=== PATIENT | female | born 1955 | race Caucasian/White ===

== ENCOUNTER 2019-02-21 08:09 | Inpatient (IN) | payer MEDICARE, OTHER ==
[~2019-02-21 08:09] MED LIST: Acetaminophen 325 MG Tab PO SCH; Acetaminophen/oxyCODONE 325-5 MG Tab PO PRN; Bisacodyl 5 MG Tab PO PRN; Cyclobenzaprine 10 MG Tab PO PRN; Lidocaine 1%/Sod Bicarbonate in NS 8.4% 1 ML Syringe IDERM PRN; Magnesium Hydroxide 400 MG/5 ML Susp 30 ML Cup PO PRN; Morphine 2 MG/ML SYRINGE IVPUSH PRN; Naloxone 0.4 MG/ML SDV IVPUSH PRN; Ondansetron 4 MG/2 ML SDV IVPUSH PRN; Pregabalin 25 MG Cap PO SCH; Sennosides 8.6 MG Tab PO PRN; Sodium Chloride 0.9% 10 ML Syringe FLUSH PRN; oxyCODONE ER 10 MG TAB.ER PO SCH
[2019-02-21] MEDS ORDERED: Bupivacaine 0.25% 10 ML SDV ONE (08:23)
[2019-02-21] MEDS ORDERED: Iodine/Sodium Iodide 2% Tincture 30 ML Bottle ONE (08:23)
[2019-02-21] MEDS ORDERED: ceFAZolin 1 GM Vial ONE ×2 (08:23→08:47)
[2019-02-21] MEDS ORDERED: Vancomycin 1 GM SDV ONE (08:23)
--- NOTE | 2019-02-21 08:38 | PCM.PREANE ---
Preanesthetic Assessment - Anesthesia/Transfusion/Family Hx Anesthesia History: Prior Anesthesia Without Reaction Family History of Anesthesia Reaction: No Transfusion History: No Prior Transfusion(s) - Review of Systems General: No Symptoms Pulmonary: No Symptoms Cardiovascular: No Symptoms Gastrointestinal: No Symptoms Neurological: No Symptoms Other: Reports: None - Physical Assessment NPO Status Date: 02/20/19 NPO Status Time: 19:30 ASA Class: 2 Mental Status: Alert & Oriented x3 Airway Class: Mallampati = 1 Dentition: Reports: Normal Dentition, Implants Thyro-Mental Finger Breadths: 3 Mouth Opening Finger Breadths: 3 ROM/Head Extension: Full Lungs: Clear to Auscultation, Normal Respiratory Effort Cardiovascular: Regular Rate, Regular Rhythm - Lab Values: Laboratory Last Values MRSA (PCR) Negative 02/02/19 15:59 - Allergies Allergies/Adverse Reactions: Allergies Allergy/AdvReac Type Severity Reaction Status Date / Time Penicillins Allergy Hives Verified 10/22/18 12:04 - Acknowledgements Anesthesia Type Planned: Spinal Pt an Appropriate Candidate for the Planned Anesthesia: Yes Alternatives and Risks of Anesthesia Discussed w Pt/Guardian: Yes Pt/Guardian Understands and Agrees with Anesthesia Plan: Yes PreAnesthesia Questionnaire HEENT History: Reports: Cataract Cardiovascular History: Reports: High Cholesterol Respiratory History: Reports: None Gastrointestinal History: Reports: None Genitourinary History: Reports: None Musculoskeletal History: Reports: Other (See Below) (osteopenia) Neurological History: Reports: None Psychiatric History: Reports: None Endocrine/Metabolic History: Reports: None Hematologic History: Reports: None Immunologic History: Reports: None Oncologic (Cancer) History: Reports: None - Past Surgical History HEENT Surgical History: Reports: Cataract Surgery, Oral Surgery GI Surgical History: Reports: Colonoscopy - SUBSTANCE USE Smoking Status *Q: Never Smoker - CURRENT (IN HOUSE) MEDS Current Meds: Current Medications Acetaminophen (Tylenol) 975 mg PO ONETIME TORO Stop: 02/21/19 12:00 Aspirin (Ecotrin) 325 mg PO BID TORO Bisacodyl (Dulcolax) 5 mg PO DAILY PRN PRN Reason: Constipation Morphine Sulfate 8 mg/Epinephrine HCl 0.3 mg/Cefuroxime Sodium 750 mg/Ketorolac Tromethamine 30 mg/Sodium Chloride 27.9 ml 0 mg .XX ONETIME ONE Stop: 02/21/19 06:48 Cyclobenzaprine HCl (Flexeril) 10 mg PO TID PRN PRN Reason: Spasms Docusate Sodium (Colace) 100 mg PO BID [facility] Famotidine (Pepcid) 20 mg PO Q12H [facility] Lactated Ringer's (Ringers, Lactated) 1,000 mls @ 125 mls/hr IV ASDIRECTED [facility] Stop: 02/21/19 23:00 Cefazolin Sodium/Dextrose 2 gm (/ Premix) 50 mls @ 100 mls/hr IV Q8H [facility] Stop: 02/21/19 23:29 Ketorolac Tromethamine (Toradol) 15 mg IVPUSH Q6H PRN PRN Reason: Pain Lidocaine/Sodium Bicarbonate (Buffered Lidocaine 1% In Ns 8.4%) 0.25 ml IDERM ONETIME PRN PRN Reason: Prior to IV Start Stop: 02/21/19 18:00 Magnesium Hydroxide (Milk Of Magnesia) 30 ml PO BID PRN PRN Reason: Constipation Morphine Sulfate (Morphine) 2 mg IVPUSH Q2H PRN PRN Reason: Breakthrough Pain Naloxone HCl (Narcan) 0.1 mg IVPUSH Q5M PRN PRN Reason: Oversedation Ondansetron HCl (Zofran) 4 mg IVPUSH Q6H PRN PRN Reason: Nausea/Vomiting Oxycodone HCl (Oxycontin) 10 mg PO ONETIME [facility] Stop: 02/21/19 12:00 Oxycodone/Acetaminophen (Percocet 325-5 Mg) 1 - 2 tab PO Q4H PRN PRN Reason: Pain Pregabalin (Lyrica) 50 mg PO ONETIME [facility] Stop: 02/21/19 12:00 Senna (Senna) 8.6 mg PO BID PRN PRN Reason: Constipation Sodium Chloride (Saline Flush) 10 ml FLUSH ASDIRECTED PRN PRN Reason: Keep Vein Open Stop: 02/21/19 18:00 Discontinued Medications Bupivacaine HCl (Sensorcaine-Mpf 0.25%) Confirm Administered Dose 30 ml .ROUTE .STK-MED ONE Stop: 02/21/19 08:24 Cefazolin Sodium (Ancef) Confirm Administered Dose 2 gm .ROUTE .STK-MED ONE Stop: 02/21/19 08:24 Iodine (Iodine 2% Mild Tincture) Confirm Administered Dose 30 ml .ROUTE .STK- MED ONE Stop: 02/21/19 08:24 Tranexamic Acid (Cyklokapron) Confirm Administered Dose 1,000 mg .ROUTE .STK- MED ONE Stop: 02/21/19 08:24 Vancomycin HCl (Vancomycin) Confirm Administered Dose 1 gm .ROUTE .STK-MED ONE Stop: 02/21/19 08:24
[2019-02-21] MEDS: Lactated Ringers 1,000 ML IV SCH ×2 (08:40→11:54)
[2019-02-21] MEDS ORDERED: Lidocaine 1% 4 ML ONE (09:00)
[2019-02-21] MEDS ORDERED: Propofol 200 MG/20 ML SDV ONE (09:00)
[2019-02-21] MEDS ORDERED: Midazolam 1 MG/ML 2 ML SDV ONE (09:02)
[2019-02-21] MEDS ORDERED: fentaNYL 100 MCG/2 ML SDV ONE (09:02)
[2019-02-21] MEDS ORDERED: Lactated Ringers 1,000 ML ONE (09:49)
[2019-02-21] MEDS ORDERED: Morphine 8 MG, EPINEPHrine 0.3 MG, Cefuroxime 750 MG, Ketorolac 30 MG, Sodium Chloride ... ONE ×5 (10:00)
[2019-02-21] MEDS ORDERED: ePHEDrine 50 MG/ML SDV IVPUSH PRN (10:05)
[2019-02-21] MEDS ORDERED: Ondansetron 4 MG/2 ML SDV IVPUSH PRN ×2 (10:05→16:00)
[2019-02-21] MEDS ORDERED: ePHEDrine/Normal Saline 25 MG/5 ML Syringe ONE (10:14)
[2019-02-21] MEDS ORDERED: Ketorolac 30 MG/ML SDV ONE (10:30)
[2019-02-21] MEDS ORDERED: Ondansetron 4 MG/2 ML SDV ONE (10:30)
--- NOTE | 2019-02-21 11:21 | PCM.POSTAN ---
POST ANESTHESIA ASSESSMENT - MENTAL STATUS Mental Status: Alert, Oriented - VITAL SIGNS Vital Signs: Last Vital Signs Temp 36.4 C 02/21/19 08:25 Pulse 64 02/21/19 08:25 Resp 16 02/21/19 08:25 BP 129/77 02/21/19 08:25 Pulse Ox 98 02/21/19 08:25 - RESPIRATORY Respiratory Status: Respiratory Rate WNL, Airway Patent, O2 Saturation Stable - CARDIOVASCULAR CV Status: Pulse Rate WNL, Blood Pressure Stable - GASTROINTESTINAL GI Status: No Symptoms - PAIN Pain Score: 0 - POST OP HYDRATION Hydration Status: Adequate & Stable
--- NOTE | 2019-02-21 11:50 | PCM48HPAN ---
Post Anesthesia Note - EVALUATION WITHIN 48HRS OF ANESTHETIC Vital Signs in Normal Range: Yes Patient Participated in Evaluation: Yes Respiratory Function Stable: Yes Airway Patent: Yes Cardiovascular Function Stable: Yes Hydration Status Stable: Yes Pain Control Satisfactory: Yes Nausea and Vomiting Control Satisfactory: Yes Mental Status Recovered: Yes Vital Signs: Last Vital Signs Temp 36.3 C 02/21/19 11:45 Pulse 60 02/21/19 11:45 Resp 11 L 02/21/19 11:45 BP 98/51 L 02/21/19 11:45 Pulse Ox 96 02/21/19 11:45
--- NOTE | 2019-02-21 12:01 | CR ---
Pelvis and right hip: AP view of the pelvis was obtained as well as AP and crosstable lateral views of the right hip. Diffuse joint space narrowing is seen within the left hip. Recently placed right hip prosthesis is seen. Soft tissue air is noted from the surgical procedure around the right hip. Underlying bony structures are intact. Impression: 1. Diffuse joint space narrowing within the left hip. 2. Satisfactory appearance of recently placed right hip prosthesis. Diagnostic code #2 This report was dictated in [place] Standard Time
[2019-02-21] MEDS ORDERED: Cyclobenzaprine 10 MG Tab PO PRN (16:00)
[2019-02-21] MEDS ORDERED: Naloxone 0.4 MG/ML SDV IVPUSH PRN (16:00)
[2019-02-21] MEDS ORDERED: Morphine 2 MG/ML SYRINGE IVPUSH PRN (16:00)
[2019-02-21] MEDS ORDERED: Magnesium Hydroxide 400 MG/5 ML Susp 30 ML Cup PO PRN (16:00)
[2019-02-21] MEDS ORDERED: Sennosides 8.6 MG Tab PO PRN (16:00)
[2019-02-21] MEDS ORDERED: Bisacodyl 5 MG Tab PO PRN (16:00)
[2019-02-21] MEDS ORDERED: Ketorolac 15 MG/ML SDV IVPUSH PRN ×2 (16:00)
[2019-02-21] MEDS: Acetaminophen/oxyCODONE 325-5 MG Tab PO PRN (16:18)
[2019-02-21] MEDS: ceFAZolin 2 GM in Premix Bag 1 BAG IV SCH (17:46)
[2019-02-21] MEDS: Docusate Sodium 100 MG Cap PO SCH (20:25)
[2019-02-21] MEDS ORDERED: Famotidine 20 MG Tab PO SCH ×2 (21:00)
[2019-02-21] MEDS ORDERED: Docusate Sodium 100 MG Cap PO SCH (21:00)
[2019-02-22] MEDS: Acetaminophen/oxyCODONE 325-5 MG Tab PO PRN ×2 (00:17→08:40)
[2019-02-22] MEDS: ceFAZolin 2 GM in Premix Bag 1 BAG IV SCH ×2 (00:18→08:42)
--- NOTE | 2019-02-22 07:37 | PCM.SURGPN ---
- General Info Date of Service: 02/22/19 POD#: 1 Functional Status: Reports: Pain Controlled, Tolerating Diet, Ambulating, Urinating, Incentive Spirometry, Other (The pt states she slept well after using Flexeril at HS.) - Patient Data Vitals - Most Recent: Last Vital Signs Temp 98.1 F 02/22/19 04:39 Pulse 74 02/22/19 04:39 Resp 16 02/22/19 04:39 BP 121/86 02/22/19 04:39 Pulse Ox 95 02/22/19 04:39 Weight - Most Recent: 173 lb 6.4 oz I&O - Last 24 Hours: Intake & Output 02/21/19 02/22/19 02/22/19 22:59 06:59 14:59 Intake Total 180 650 Output Total 1500 Balance 180 -850 Lab Results Last 24 Hrs: Laboratory Results - last 24 hr 02/21/19 02/21/19 02/22/19 Range/Units 08:43 08:43 05:50 WBC 8.60 (3.98-10.04) K/mm3 RBC 3.77 L (3.98-5.22) M/mm3 Hgb 11.5 (11.2-15.7) gm/dl Hct 34.7 (34.1-44.9) % MCV 92.0 (79.4-94.8) fl MCH 30.5 (25.6-32.2) pg MCHC 33.1 (32.2-35.5) g/dl RDW Std Deviation 38.5 (36.4-46.3) fL Plt Count 149 L (182-369) K/mm3 MPV 11.2 (9.4-12.3) fl PT 11.6 (9.7-12.0) SECONDS INR 1.07 APTT 27 (22-31) SECONDS Sodium (136-145) mEq/L Potassium (3.5-5.1) mEq/L Chloride (98-107) mEq/L Carbon Dioxide (21-32) mEq/L Anion Gap (5-15) BUN (7-18) mg/dL Creatinine (0.55-1.02) mg/dL Est Cr Clr Drug Dosing mL/min Estimated GFR (MDRD) (>60) mL/min BUN/Creatinine Ratio (14-18) Glucose (80-115) mg/dL Calcium (8.5-10.1) mg/dL Total Bilirubin (0.2-1.0) mg/dL AST (15-37) U/L ALT (14-59) U/L Alkaline Phosphatase (46-116) U/L Total Protein (6.4-8.2) g/dl Albumin (3.4-5.0) g/dl Globulin gm/dL Albumin/Globulin Ratio (1-2) Blood Type O POSITIVE Gel Antibody Screen Negative 02/22/19 Range/Units 05:50 WBC (3.98-10.04) K/mm3 RBC (3.98-5.22) M/mm3 Hgb (11.2-15.7) gm/dl Hct (34.1-44.9) % MCV (79.4-94.8) fl MCH (25.6-32.2) pg MCHC (32.2-35.5) g/dl RDW Std Deviation (36.4-46.3) fL Plt Count (182-369) K/mm3 MPV (9.4-12.3) fl PT (9.7-12.0) SECONDS INR APTT (22-31) SECONDS Sodium 135 L (136-145) mEq/L Potassium 4.0 (3.5-5.1) mEq/L Chloride 102 (98-107) mEq/L Carbon Dioxide 25 (21-32) mEq/L Anion Gap 12.0 (5-15) BUN 15 (7-18) mg/dL Creatinine 0.8 (0.55-1.02) mg/dL Est Cr Clr Drug Dosing 60.54 mL/min Estimated GFR (MDRD) > 60 (>60) mL/min BUN/Creatinine Ratio 18.8 H (14-18) Glucose 136 H (80-115) mg/dL Calcium 8.5 (8.5-10.1) mg/dL Total Bilirubin 0.4 (0.2-1.0) mg/dL AST 32 (15-37) U/L ALT 33 (14-59) U/L Alkaline Phosphatase 81 (46-116) U/L Total Protein 6.0 L (6.4-8.2) g/dl Albumin 3.1 L (3.4-5.0) g/dl Globulin 2.9 gm/dL Albumin/Globulin Ratio 1.1 (1-2) Blood Type Gel Antibody Screen Med Orders - Current: Current Medications Aspirin (Ecotrin) 325 mg PO BID ON LICENSE OF [facility] Bisacodyl (Dulcolax) 5 mg PO DAILY PRN PRN Reason: Constipation Cholecalciferol (Vitamin D3) 50 mcg PO DAILY ON [facility] OF [facility] Cyclobenzaprine HCl (Flexeril) 10 mg PO TID PRN PRN Reason: Spasms Last Admin: 02/22/19 02:31 Dose: 10 mg Docusate Sodium (Colace) 100 mg PO BID ON [facility] Last Admin: 02/21/19 20:25 Dose: 100 mg Famotidine (Pepcid) 20 mg PO Q12H ON [facility] Last Admin: 02/21/19 20:26 Dose: 20 mg Cefazolin Sodium/Dextrose 2 gm (/ Premix) 50 mls @ 100 mls/hr IV Q8H ON [facility] Stop: 02/22/19 09:29 Last Admin: 02/22/19 00:18 Dose: 100 mls/hr Ketorolac Tromethamine (Toradol) 15 mg IVPUSH Q6H PRN PRN Reason: Pain Last Admin: 02/21/19 20:30 Dose: 15 mg Magnesium Hydroxide (Milk Of Magnesia) 30 ml PO BID PRN PRN Reason: Constipation Morphine Sulfate (Morphine) 2 mg IVPUSH Q2H PRN PRN Reason: Breakthrough Pain Multivitamins (Thera) 1 each PO DAILY ON [facility] Naloxone HCl (Narcan) 0.1 mg IVPUSH Q5M PRN PRN Reason: Oversedation Ondansetron HCl (Zofran) 4 mg IVPUSH Q6H PRN PRN Reason: Nausea/Vomiting Oxycodone/Acetaminophen (Percocet 325-5 Mg) 1 - 2 tab PO Q4H PRN PRN Reason: Pain Last Admin: 02/22/19 00:17 Dose: 2 tab Rosuvastatin Calcium (Crestor) 5 mg PO DAILY ON [facility] Saccharomyces Boulardii (Florastor) 250 mg PO DAILY ON [facility] Senna (Senna) 8.6 mg PO BID PRN PRN Reason: Constipation Discontinued Medications Acetaminophen (Tylenol) 975 mg PO ONETIME ON [facility] Stop: 02/21/19 12:00 Last Admin: 02/21/19 08:46 Dose: 975 mg Aspirin (Ecotrin) 325 mg PO BID [facility] Bisacodyl (Dulcolax) 5 mg PO DAILY PRN PRN Reason: Constipation Bupivacaine HCl (Sensorcaine-Mpf 0.25%) Confirm Administered Dose 30 ml .ROUTE .STK-MED ONE Stop: 02/21/19 08:24 Last Admin: 02/21/19 10:46 Dose: 30 ml Cefazolin Sodium (Ancef) Confirm Administered Dose 2 gm .ROUTE .STK-MED ONE Stop: 02/21/19 08:24 Last Admin: 02/21/19 10:40 Dose: 2 gm Cefazolin Sodium (Ancef) Confirm Administered Dose 2 gm .ROUTE .STK-MED ONE Stop: 02/21/19 08:48 Morphine Sulfate 8 mg/Epinephrine HCl 0.3 mg/Cefuroxime Sodium 750 mg/Ketorolac Tromethamine 30 mg/Sodium Chloride 27.9 ml 0 mg .XX ONETIME ONE Stop: 02/21/19 10:01 Last Admin: 02/21/19 10:45 Dose: 788.3 mg Cyclobenzaprine HCl (Flexeril) 10 mg PO TID PRN PRN Reason: Spasms Docusate Sodium (Colace) 100 mg PO BID ON [facility] Ephedrine Sulfate (Ephedrine Sulfate) 5 mg IVPUSH ASDIRECTED PRN PRN Reason: Hypotension Stop: 02/21/19 14:00 Ephedrine Sulfate (Ephedrine In Ns) Confirm Administered Dose 25 mg .ROUTE .STK- MED ONE Stop: 02/21/19 10:15 Famotidine (Pepcid) 20 mg PO Q12H ON [facility] Fentanyl (Sublimaze) Confirm Administered Dose 100 mcg .ROUTE .STK-MED ONE Stop: 02/21/19 09:03 Lactated Ringer's (Ringers, Lactated) 1,000 mls @ 125 mls/hr IV ASDIRECTED [facility] Stop: 02/21/19 23:00 Last Admin: 02/21/19 11:54 Dose: 125 mls/hr Lidocaine HCl (Xylocaine-Mpf 1%) Confirm Administered Dose 4 mls @ as directed .ROUTE .STK-MED ONE Stop: 02/21/19 09:01 Lactated Ringer's (Ringers, Lactated) Confirm Administered Dose 1,000 mls @ as directed .ROUTE .STK-MED ONE Stop: 02/21/19 09:50 Iodine (Iodine 2% Mild Tincture) Confirm Administered Dose 30 ml .ROUTE .STK- MED ONE Stop: 02/21/19 08:24 Last Admin: 02/21/19 10:39 Dose: 18 ml Ketorolac Tromethamine (Toradol) 15 mg IVPUSH Q6H PRN PRN Reason: Pain Ketorolac Tromethamine (Toradol) Confirm Administered Dose 30 mg .ROUTE .STK- MED ONE Stop: 02/21/19 10:31 Lidocaine/Sodium Bicarbonate (Buffered Lidocaine 1% In Ns 8.4%) 0.25 ml IDERM ONETIME PRN PRN Reason: Prior to IV Start Stop: 02/21/19 18:00 Last Admin: 02/21/19 08:39 Dose: 0.25 ml Magnesium Hydroxide (Milk Of Magnesia) 30 ml PO BID PRN PRN Reason: Constipation Midazolam HCl (Versed 1 Mg/Ml) Confirm Administered Dose 2 mg .ROUTE .STK-MED ONE Stop: 02/21/19 09:03 Morphine Sulfate (Morphine) 2 mg IVPUSH Q2H PRN PRN Reason: Breakthrough Pain Naloxone HCl (Narcan) 0.1 mg IVPUSH Q5M PRN PRN Reason: Oversedation Ondansetron HCl (Zofran) 4 mg IVPUSH Q6H PRN PRN Reason: Nausea/Vomiting Ondansetron HCl (Zofran) 4 mg IVPUSH ONETIME PRN PRN Reason: Nausea/Vomiting Stop: 02/21/19 14:00 Ondansetron HCl (Zofran) Confirm Administered Dose 4 mg .ROUTE .STK-MED ONE Stop: 02/21/19 10:31 Oxycodone HCl (Oxycontin) 10 mg PO ONETIME [facility] Stop: 02/21/19 12:00 Last Admin: 02/21/19 08:46 Dose: 10 mg Oxycodone/Acetaminophen (Percocet 325-5 Mg) 1 - 2 tab PO Q4H PRN PRN Reason: Pain Pregabalin (Lyrica) 50 mg PO ONETIME [facility] Stop: 02/21/19 12:00 Last Admin: 02/21/19 08:46 Dose: 50 mg Propofol (Diprivan 20 Ml) Confirm Administered Dose 200 mg .ROUTE .STK-MED ONE Stop: 02/21/19 09:01 Senna (Senna) 8.6 mg PO BID PRN PRN Reason: Constipation Sodium Chloride (Saline Flush) 10 ml FLUSH ASDIRECTED PRN PRN Reason: Keep Vein Open Stop: 02/21/19 18:00 Tranexamic Acid (Cyklokapron) Confirm Administered Dose 1,000 mg .ROUTE .STK- MED ONE Stop: 02/21/19 08:24 Last Admin: 02/21/19 10:47 Dose: 1,000 mg Vancomycin HCl (Vancomycin) Confirm Administered Dose 1 gm .ROUTE .STK-MED ONE Stop: 02/21/19 08:24 Last Admin: 02/21/19 10:47 Dose: 1 gm - Exam Wound/Incisions: Dressing Dry and Intact General: Alert, Cooperative, No Acute Distress Lungs: Normal Respiratory Effort Extremities: Other (NVS intact for BLE. Kennedy's negative. Right thigh soft.) Sepsis Event Note - Evaluation Sepsis Screening Result: No Definite Risk - Focused Exam Vital Signs: Vital Signs Temp Pulse Resp BP Pulse Ox 02/22/19 04:39 98.1 F 74 16 121/86 95 02/22/19 00:05 98.1 F 63 18 128/85 99 02/21/19 20:24 98.8 F 70 18 116/70 98 Date Exam was Performed: 02/22/19 Time Exam was Performed: 07:35 - Problem List Review Problem List Initiated/Reviewed/Updated: Yes - My Orders Last 24 Hours: Active Orders 24 hr Category Date Time Status Patient Status [ADT] Routine ADT 02/21/19 06:49 Active Ambulate [RC] DAILY Care 02/21/19 06:48 Active Antiembolic Devices [RC] BID Care 02/21/19 06:49 Active Communication Order [RC] DAILY Care 02/21/19 10:05 Active May Shower [RC] DAILY Care 02/21/19 06:48 Active Notify Provider [RC] DAILY Care 02/21/19 10:05 Active Oxygen Therapy [RC] PRN Care 02/21/19 06:49 Active RT Incentive Spirometry [RC] Q1HWA Care 02/21/19 06:47 Active Ready for Discharge [RC] PER UNIT ROUTINE Care 02/22/19 07:35 Ordered Up to Chair [RC] DAILY Care 02/21/19 06:48 Active Vital Signs [RC] 00,04,08,12,16,20 Care 02/21/19 06:49 Active OT Evaluation and Treatment [CONS] Routine Cons 02/21/19 06:47 Active PT Evaluation and Treatment [CONS] Routine Cons 02/21/19 06:47 Active Regular Diet [DIET] Diet 02/21/19 Lunch Active Acetaminophen/oxyCODONE [Percocet 325-5 MG] Med 02/21/19 16:00 Active 1 - 2 tab PO Q4H PRN Aspirin [Ecotrin] Med 02/22/19 09:00 Active 325 mg PO BID Cholecalciferol (Vitamin D3) [Vitamin D3] Med 02/22/19 09:00 Active 50 mcg PO DAILY Cyclobenzaprine [Flexeril] Med 02/21/19 16:00 Active 10 mg PO TID PRN Docusate Sodium [Colace] Med 02/21/19 21:00 Active 100 mg PO BID Famotidine [Pepcid] Med 02/21/19 21:00 Active 20 mg PO Q12H Ketorolac [Toradol] Med 02/21/19 16:00 Active 15 mg IVPUSH Q6H PRN Magnesium Hydroxide [Milk of Magnesia] Med 02/21/19 16:00 Active 30 ml PO BID PRN Morphine Med 02/21/19 16:00 Active 2 mg IVPUSH Q2H PRN Multivitamins,Therapeutic [Thera] Med 02/22/19 09:00 Active 1 each PO DAILY Naloxone [Narcan] Med 02/21/19 16:00 Active 0.1 mg IVPUSH Q5M PRN Ondansetron [Zofran] Med 02/21/19 16:00 Active 4 mg IVPUSH Q6H PRN Rosuvastatin [Crestor] Med 02/22/19 09:00 Active 5 mg PO DAILY Saccharomyces Boulardii [Florastor] Med 02/22/19 09:00 Active 250 mg PO DAILY Sennosides [Senna] Med 02/21/19 16:00 Active 8.6 mg PO BID PRN bisacodyL [Dulcolax] Med 02/21/19 16:00 Active 5 mg PO DAILY PRN ceFAZolin [Ancef] 2 gm Med 02/21/19 17:00 Active Premix Bag 1 bag IV Q8H Antiembolic Hose [OM.PC] Per Unit Routine Oth 02/21/19 06:50 Ordered Hip Precautions Posterior [OM.PC] Routine Oth 02/21/19 06:47 Ordered Ice Therapy [OM.PC] Per Unit Routine Oth 02/21/19 06:49 Ordered Sequential Compression Device [OM.PC] Per Unit Routine Oth 02/21/19 06:47 Ordered Resuscitation Status Routine Resus Stat 02/21/19 06:48 Ordered Medication Orders Aspirin (Ecotrin) 325 mg PO BID ON [facility] OF [facility] Bisacodyl (Dulcolax) 5 mg PO DAILY PRN PRN Reason: Constipation Cholecalciferol (Vitamin D3) 50 mcg PO DAILY ON [facility] Cyclobenzaprine HCl (Flexeril) 10 mg PO TID PRN PRN Reason: Spasms Last Admin: 02/22/19 02:31 Dose: 10 mg Docusate Sodium (Colace) 100 mg PO BID ON [facility] Last Admin: 02/21/19 20:25 Dose: 100 mg Famotidine (Pepcid) 20 mg PO Q12H ON [facility] Last Admin: 02/21/19 20:26 Dose: 20 mg Cefazolin Sodium/Dextrose 2 gm (/ Premix) 50 mls @ 100 mls/hr IV Q8H ON [facility] Stop: 02/22/19 09:29 Last Admin: 02/22/19 00:18 Dose: 100 mls/hr Infusion: 02/21/19 18:16 Dose: 100 mls/hr Admin: 02/21/19 17:46 Dose: 100 mls/hr Ketorolac Tromethamine (Toradol) 15 mg IVPUSH Q6H PRN PRN Reason: Pain Last Admin: 02/21/19 20:30 Dose: 15 mg Magnesium Hydroxide (Milk Of Magnesia) 30 ml PO BID PRN PRN Reason: Constipation Morphine Sulfate (Morphine) 2 mg IVPUSH Q2H PRN PRN Reason: Breakthrough Pain Multivitamins (Thera) 1 each PO DAILY ON [facility] Naloxone HCl (Narcan) 0.1 mg IVPUSH Q5M PRN PRN Reason: Oversedation Ondansetron HCl (Zofran) 4 mg IVPUSH Q6H PRN PRN Reason: Nausea/Vomiting Oxycodone/Acetaminophen (Percocet 325-5 Mg) 1 - 2 tab PO Q4H PRN PRN Reason: Pain Last Admin: 02/22/19 00:17 Dose: 2 tab Admin: 02/21/19 16:18 Dose: 1 tab Rosuvastatin Calcium (Crestor) 5 mg PO DAILY [facility] Saccharomyces Boulardii (Florastor) 250 mg PO DAILY [facility] Senna (Senna) 8.6 mg PO BID PRN PRN Reason: Constipation - Assessment Assessment (Free Text/Narrative):: POD#1 - right JOSE DANIEL - Plan Plan (Free Text/Narrative):: 1. Hgb 11.5. 2. Discharge to home today. 3. Outpatient therapy. 4. 325mg ASA PO BID, frequent mobility, TEDs. The pt's case was discussed with Dr. Infante.
--- NOTE | 2019-02-22 08:15 | PCM.DCSUM1 ---
Discharge Summary - Hospital Course Brief History: Apple is a 63 yo female who underwent right JOSE DANIEL with Dr. Infante on 02-21-2019. The procedure was completed under spinal anesthesia with MAC. The pt tolerated the procedure well and was admitted to the Medical-Surgical Unit. The pt's Hospital course was uneventful. The pt's Hgb on POD#1 was 11.5. On POD#1, 325mg ASA BID was initiated for VTE prophylaxis. SCDs and TEDs were also ordered. A Mepilex dressing was placed at the incision site at the time of surgery and remained clean and dry. The pt participated in P.T. and O.T. and progressed well. She followed the JOSE DANIEL precautions. The pt was allowed to WBAT and used a FWW for mobility. On POD#1, the pt was deemed appropriate to discharge to home with her . - Discharge Data Discharge Date: 02/22/19 Discharge Disposition: Home, Self-Care 01 Condition: Good - Referral to Home Health Primary Care Physician: PCP Not In Area - Patient Summary/Data Consults: Consultations 02/21/19 06:47 OT Evaluation and Treatment [CONS] Routine PT Evaluation and Treatment [CONS] Routine - Patient Instructions Diet: Usual Diet as Tolerated Activity: Apply Ice, As Tolerated, Elevate Extremity, Full Weight Bearing Activity, Other: Follow the total hip precautions. Driving: Do Not Drive Showering/Bathing: May Shower Wound/Incision Care: Keep Operative Site/Wound Site Clean and Dry, Do NOT Change Dressing Notify Provider of: Fever, Increased Pain, Swelling and Redness, Drainage, Nausea and/or Vomiting Other/Special Instructions: Please get up and moving around EVERY HOUR while awake. This helps to prevent blood clots. Please use your walker and have help with mobility as needed. Take a short walk in your home every hour while awake. Please take 325mg Aspirin TWICE daily. The aspirin is being used for blood clot prevention and not for pain management so please do not miss a dose of the medication. You could use a medication like Pepcid or Tagamet and a medication like Prilosec or Nexium to protect your stomach while you are using the aspirin. At home, please complete the exercises that you learned during the Hospital stay. Schedule for physical therapy. Follow the total hip precautions. Use the pain medication as needed. The medication may cause drowsiness and constipation. Contact your primary care provider for instructions if you are constipated. You may use a stool softener like docusate sodium or Colace 100mg twice daily and/or a laxative like Miralax daily for constipation. Increase your water and fiber intake while you are using the pain medication. Discontinue use of the pain medication as soon as able. Please do not use other medications that may cause drowsiness (other pain medications, anxiety pills, cold medications, sleeping pills, etc) while using the prescription pain medication. Do not use alcohol while using the pain medication. You may use acetaminophen or Tylenol for pain management, however, please ensure you are not using over 4000 mg or 4 grams of acetaminophen per day from all sources. Your pain medication has 325mg of acetaminophen per tablet. At this time, please do not use ibuprofen (Motrin, Advil) or naproxen (Aleve) for pain management as you are using the aspirin. When the aspirin course is completed in 4 to 6 weeks, you could use ibuprofen or naproxen for pain management (if this is allowed by your primary care provider). Wear the ARTEMIO hose during the day and you may remove these at night. Elevate the limb to decrease swelling. Place ice to the area often. Place a towel between your skin and the blue pad. Use the incentive spirometer often. Take deep breaths throughout the day. Please keep the dressing in place until follow-up. Notify the Clinic if the dressing becomes saturated. Increase your protein intake while you are healing. You may resume use of herbal medication in 2 weeks. Call the Clinic with questions or concerns - [phone]. - Discharge Plan *PRESCRIPTION DRUG MONITORING PROGRAM REVIEWED*: No *COPY OF PRESCRIPTION DRUG MONITORING REPORT IN PATIENT JENNIFER: No Prescriptions/Med Rec: Acetaminophen/oxyCODONE [Percocet 325-5 MG] 1 - 2 tab PO Q4H PRN #60 tablet PRN Reason: Pain Aspirin [Ecotrin EC] 325 mg PO BID #70 tab.ec Cyclobenzaprine [Flexeril] 10 mg PO BID PRN #30 tablet PRN Reason: Spasms Home Medications: Home Meds Cholecalciferol (Vitamin D3) [Vitamin D3] 1 cap PO DAILY 02/21/19 [History] L.acidoph,Paracasei, B.lactis [Probiotic] 1 cap PO DAILY 02/21/19 [History] Multivitamin [Multivitamins] 1 cap PO DAILY 02/21/19 [History] Rosuvastatin [Crestor] 5 mg PO DAILY 02/21/19 [History] estradioL [Estrace 0.01% Vaginal Crm] 1 gram VAG ASDIRECTED 02/21/19 [History] Acetaminophen/oxyCODONE [Percocet 325-5 MG] 1 - 2 tab PO Q4H PRN #60 tablet 09/04 [Rx] Aspirin [Ecotrin EC] 325 mg PO BID #70 tab.ec 02/22/19 [Rx] Cyclobenzaprine [Flexeril] 10 mg PO BID PRN #30 tablet 02/22/19 [Rx] Docusate Sodium [Colace] 100 mg PO BID cap 02/22/19 [Rx] Famotidine [Pepcid] 20 mg PO Q12H tablet 02/22/19 [Rx] Magnesium Hydroxide [Milk of Magnesia] 30 ml PO BID PRN cup 02/22/19 [Rx] Sennosides [Senna] 8.6 mg PO BID PRN tablet 02/22/19 [Rx] bisacodyL [Dulcolax] 5 mg PO DAILY PRN tablet 02/22/19 [Rx] Patient Handouts: Total Hip Replacement, [id number] Referrals: Milady Leal PA-C [Physician Us Administrative Law Judge] - - Discharge Summary/Plan Comment DC Time >30 min.: No - Patient Data Vitals - Most Recent: Last Vital Signs Temp 98.1 F 02/22/19 04:39 Pulse 74 02/22/19 04:39 Resp 16 02/22/19 04:39 BP 121/86 02/22/19 04:39 Pulse Ox 95 02/22/19 04:39 Weight - Most Recent: 173 lb 6.4 oz I&O - Last 24 hours: Intake & Output 02/21/19 02/22/19 02/22/19 22:59 06:59 14:59 Intake Total 180 650 Output Total 1500 Balance 180 -850 Lab Results - Last 24 hrs: Laboratory Results - last 24 hr 02/21/19 02/21/19 02/22/19 Range/Units 08:43 08:43 05:50 WBC 8.60 (3.98-10.04) K/mm3 RBC 3.77 L (3.98-5.22) M/mm3 Hgb 11.5 (11.2-15.7) gm/dl Hct 34.7 (34.1-44.9) % MCV 92.0 (79.4-94.8) fl MCH 30.5 (25.6-32.2) pg MCHC 33.1 (32.2-35.5) g/dl RDW Std Deviation 38.5 (36.4-46.3) fL Plt Count 149 L (182-369) K/mm3 MPV 11.2 (9.4-12.3) fl PT 11.6 (9.7-12.0) SECONDS INR 1.07 APTT 27 (22-31) SECONDS Sodium (136-145) mEq/L Potassium (3.5-5.1) mEq/L Chloride (98-107) mEq/L Carbon Dioxide (21-32) mEq/L Anion Gap (5-15) BUN (7-18) mg/dL Creatinine (0.55-1.02) mg/dL Est Cr Clr Drug Dosing mL/min Estimated GFR (MDRD) (>60) mL/min BUN/Creatinine Ratio (14-18) Glucose (80-115) mg/dL Calcium (8.5-10.1) mg/dL Total Bilirubin (0.2-1.0) mg/dL AST (15-37) U/L ALT (14-59) U/L Alkaline Phosphatase (46-116) U/L Total Protein (6.4-8.2) g/dl Albumin (3.4-5.0) g/dl Globulin gm/dL Albumin/Globulin Ratio (1-2) Blood Type O POSITIVE Gel Antibody Screen Negative 02/22/19 Range/Units 05:50 WBC (3.98-10.04) K/mm3 RBC (3.98-5.22) M/mm3 Hgb (11.2-15.7) gm/dl Hct (34.1-44.9) % MCV (79.4-94.8) fl MCH (25.6-32.2) pg MCHC (32.2-35.5) g/dl RDW Std Deviation (36.4-46.3) fL Plt Count (182-369) K/mm3 MPV (9.4-12.3) fl PT (9.7-12.0) SECONDS INR APTT (22-31) SECONDS Sodium 135 L (136-145) mEq/L Potassium 4.0 (3.5-5.1) mEq/L Chloride 102 (98-107) mEq/L Carbon Dioxide 25 (21-32) mEq/L Anion Gap 12.0 (5-15) BUN 15 (7-18) mg/dL Creatinine 0.8 (0.55-1.02) mg/dL Est Cr Clr Drug Dosing 60.54 mL/min Estimated GFR (MDRD) > 60 (>60) mL/min BUN/Creatinine Ratio 18.8 H (14-18) Glucose 136 H (80-115) mg/dL Calcium 8.5 (8.5-10.1) mg/dL Total Bilirubin 0.4 (0.2-1.0) mg/dL AST 32 (15-37) U/L ALT 33 (14-59) U/L Alkaline Phosphatase 81 (46-116) U/L Total Protein 6.0 L (6.4-8.2) g/dl Albumin 3.1 L (3.4-5.0) g/dl Globulin 2.9 gm/dL Albumin/Globulin Ratio 1.1 (1-2) Blood Type Gel Antibody Screen Med Orders - Current: Current Medications Aspirin (Ecotrin) 325 mg PO BID [facility] Bisacodyl (Dulcolax) 5 mg PO DAILY PRN PRN Reason: Constipation Cholecalciferol (Vitamin D3) 50 mcg PO DAILY [facility] Cyclobenzaprine HCl (Flexeril) 10 mg PO TID PRN PRN Reason: Spasms Last Admin: 02/22/19 02:31 Dose: 10 mg Docusate Sodium (Colace) 100 mg PO BID [facility] Last Admin: 02/21/19 20:25 Dose: 100 mg Famotidine (Pepcid) 20 mg PO Q12H [facility] Cefazolin Sodium/Dextrose 2 gm (/ Premix) 50 mls @ 100 mls/hr IV Q8H [facility] Stop: 02/22/19 09:29 Last Admin: 02/22/19 00:18 Dose: 100 mls/hr Ketorolac Tromethamine (Toradol) 15 mg IVPUSH Q6H PRN PRN Reason: Pain Last Admin: 01/06/20 20:30 Dose: 15 mg Magnesium Hydroxide (Milk Of Magnesia) 30 ml PO BID PRN PRN Reason: Constipation Morphine Sulfate (Morphine) 2 mg IVPUSH Q2H PRN PRN Reason: Breakthrough Pain Multivitamins (Thera) 1 each PO DAILY [facility] Naloxone HCl (Narcan) 0.1 mg IVPUSH Q5M PRN PRN Reason: Oversedation Ondansetron HCl (Zofran) 4 mg IVPUSH Q6H PRN PRN Reason: Nausea/Vomiting Oxycodone/Acetaminophen (Percocet 325-5 Mg) 1 - 2 tab PO Q4H PRN PRN Reason: Pain Last Admin: 02/22/19 00:17 Dose: 2 tab Rosuvastatin Calcium (Crestor) 5 mg PO DAILY [facility] Saccharomyces Boulardii (Florastor) 250 mg PO DAILY [facility] Senna (Senna) 8.6 mg PO BID PRN PRN Reason: Constipation Discontinued Medications Acetaminophen (Tylenol) 975 mg PO ONETIME [facility] Stop: 02/21/19 12:00 Last Admin: 02/21/19 08:46 Dose: 975 mg Aspirin (Ecotrin) 325 mg PO BID [facility] Bisacodyl (Dulcolax) 5 mg PO DAILY PRN PRN Reason: Constipation Bupivacaine HCl (Sensorcaine-Mpf 0.25%) Confirm Administered Dose 30 ml .ROUTE .STK-MED ONE Stop: 02/21/19 08:24 Last Admin: 02/21/19 10:46 Dose: 30 ml Cefazolin Sodium (Ancef) Confirm Administered Dose 2 gm .ROUTE .STK-MED ONE Stop: 02/21/19 08:24 Last Admin: 02/21/19 10:40 Dose: 2 gm Cefazolin Sodium (Ancef) Confirm Administered Dose 2 gm .ROUTE .STK-MED ONE Stop: 02/21/19 08:48 Morphine Sulfate 8 mg/Epinephrine HCl 0.3 mg/Cefuroxime Sodium 750 mg/Ketorolac Tromethamine 30 mg/Sodium Chloride 27.9 ml 0 mg .XX ONETIME ONE Stop: 02/21/19 10:01 Last Admin: 02/21/19 10:45 Dose: 788.3 mg Cyclobenzaprine HCl (Flexeril) 10 mg PO TID PRN PRN Reason: Spasms Docusate Sodium (Colace) 100 mg PO BID [facility] Ephedrine Sulfate (Ephedrine Sulfate) 5 mg IVPUSH ASDIRECTED PRN PRN Reason: Hypotension Stop: 02/21/19 14:00 Ephedrine Sulfate (Ephedrine In Ns) Confirm Administered Dose 25 mg .ROUTE .STK- MED ONE Stop: 02/21/19 10:15 Famotidine (Pepcid) 20 mg PO Q12H [facility] Famotidine (Pepcid) 20 mg PO Q12H [facility] Last Admin: 02/21/19 20:26 Dose: 20 mg Fentanyl (Sublimaze) Confirm Administered Dose 100 mcg .ROUTE .STK-MED ONE Stop: 02/21/19 09:03 Lactated Ringer's (Ringers, Lactated) 1,000 mls @ 125 mls/hr IV ASDIRECTED [facility] Stop: 02/21/19 23:00 Last Admin: 02/21/19 11:54 Dose: 125 mls/hr Lidocaine HCl (Xylocaine-Mpf 1%) Confirm Administered Dose 4 mls @ as directed .ROUTE .STK-MED ONE Stop: 02/21/19 09:01 Lactated Ringer's (Ringers, Lactated) Confirm Administered Dose 1,000 mls @ as directed .ROUTE .STK-MED ONE Stop: 02/21/19 09:50 Iodine (Iodine 2% Mild Tincture) Confirm Administered Dose 30 ml .ROUTE .STK- MED ONE Stop: 02/21/19 08:24 Last Admin: 02/21/19 10:39 Dose: 18 ml Ketorolac Tromethamine (Toradol) 15 mg IVPUSH Q6H PRN PRN Reason: Pain Ketorolac Tromethamine (Toradol) Confirm Administered Dose 30 mg .ROUTE .STK- MED ONE Stop: 02/21/19 10:31 Lidocaine/Sodium Bicarbonate (Buffered Lidocaine 1% In Ns 8.4%) 0.25 ml IDERM ONETIME PRN PRN Reason: Prior to IV Start Stop: 02/21/19 18:00 Last Admin: 02/21/19 08:39 Dose: 0.25 ml Magnesium Hydroxide (Milk Of Magnesia) 30 ml PO BID PRN PRN Reason: Constipation Midazolam HCl (Versed 1 Mg/Ml) Confirm Administered Dose 2 mg .ROUTE .STK-MED ONE Stop: 02/21/19 09:03 Morphine Sulfate (Morphine) 2 mg IVPUSH Q2H PRN PRN Reason: Breakthrough Pain Naloxone HCl (Narcan) 0.1 mg IVPUSH Q5M PRN PRN Reason: Oversedation Ondansetron HCl (Zofran) 4 mg IVPUSH Q6H PRN PRN Reason: Nausea/Vomiting Ondansetron HCl (Zofran) 4 mg IVPUSH ONETIME PRN PRN Reason: Nausea/Vomiting Stop: 02/21/19 14:00 Ondansetron HCl (Zofran) Confirm Administered Dose 4 mg .ROUTE .STK-MED ONE Stop: 02/21/19 10:31 Oxycodone HCl (Oxycontin) 10 mg PO ONETIME [facility] Stop: 02/21/19 12:00 Last Admin: 02/21/19 08:46 Dose: 10 mg Oxycodone/Acetaminophen (Percocet 325-5 Mg) 1 - 2 tab PO Q4H PRN PRN Reason: Pain Pregabalin (Lyrica) 50 mg PO ONETIME [facility] Stop: 02/21/19 12:00 Last Admin: 02/21/19 08:46 Dose: 50 mg Propofol (Diprivan 20 Ml) Confirm Administered Dose 200 mg .ROUTE .STK-MED ONE Stop: 02/21/19 09:01 Senna (Senna) 8.6 mg PO BID PRN PRN Reason: Constipation Sodium Chloride (Saline Flush) 10 ml FLUSH ASDIRECTED PRN PRN Reason: Keep Vein Open Stop: 02/21/19 18:00 Tranexamic Acid (Cyklokapron) Confirm Administered Dose 1,000 mg .ROUTE .STK- MED ONE Stop: 02/21/19 08:24 Last Admin: 02/21/19 10:47 Dose: 1,000 mg Vancomycin HCl (Vancomycin) Confirm Administered Dose 1 gm .ROUTE .STK-MED ONE Stop: 02/21/19 08:24 Last Admin: 02/21/19 10:47 Dose: 1 gm
[2019-02-22] MEDS: Docusate Sodium 100 MG Cap PO SCH (08:39)
[2019-02-22] MEDS ORDERED: Rosuvastatin 10 MG Tab PO SCH (09:00)
[2019-02-22] MEDS ORDERED: Aspirin 325 MG Tab.EC PO SCH ×2 (09:00)
[2019-02-22] MEDS ORDERED: Multivitamins,Therapeutic Tab PO SCH (09:00)
[2019-02-22] MEDS ORDERED: Cholecalciferol (Vitamin D3) 25 MCG Tab PO SCH (09:00)
[2019-02-22] MEDS ORDERED: Saccharomyces Boulardii (Probiotic) 250 MG Cap PO SCH (09:00)
[2019-02-22] MEDS ORDERED: Famotidine 10 MG Tab PO SCH (09:00)
--- NOTE | 2019-02-22 09:18 | PCM48HPAN ---
Post Anesthesia Note - EVALUATION WITHIN 48HRS OF ANESTHETIC Vital Signs in Normal Range: Yes Patient Participated in Evaluation: Yes Respiratory Function Stable: Yes Airway Patent: Yes Cardiovascular Function Stable: Yes Hydration Status Stable: Yes Pain Control Satisfactory: Yes Nausea and Vomiting Control Satisfactory: Yes (Nausea last evening. Better now.) Mental Status Recovered: Yes Vital Signs: Last Vital Signs Temp 98.1 F 02/22/19 04:39 Pulse 74 02/22/19 04:39 Resp 16 02/22/19 04:39 BP 121/86 02/22/19 04:39 Pulse Ox 95 02/22/19 04:39
--- NOTE | 2019-02-24 08:40 | PCM.OPNOTE ---
- General Post-Op/Procedure Note Date of Surgery/Procedure: 02/21/19 Operative Procedure(s): right total hip arthroplasty Pre Op Diagnosis: right hip osteoarthrosis Post-Op Diagnosis: Same Anesthesia Technique: Local, MAC, Spinal Primary Surgeon: Micky Infante Anesthesia Provider: Claudia Ontiveros Player Services Representative: Milady Leal Player Services Representative: Dee Moore EBPramod in mLs: 300 Complications: None Condition: Good Free Text/Narrative:: 54 cup 7 stem 36-5
--- NOTE | 2019-02-24 09:20 | OR ---
DATE OF OPERATION: 02/21/2019 SURGEON: Micky Infante MD OPERATION PERFORMED: Right total hip arthroplasty. PREOPERATIVE DIAGNOSIS: Right hip osteoarthrosis. POSTOPERATIVE DIAGNOSIS: Right hip osteoarthrosis. ANESTHESIA: Local MAC with spinal. ANESTHESIA PROVIDER: Claudia Ontiveros CRNA ASSISTANTS: 1. Milady Leal PA-C. 2. Dee Moore LPN. ESTIMATED BLOOD LOSS: 300 mL. COMPLICATIONS: None. CONDITION: Stable. IMPLANTS: 1. Bushnell size 54 mm Tritanium II solid acetabular cup. 2. Bushnell size 36 -5 Biolox femoral head. 3. Bushnell size 7 Accolade II stem. DESCRIPTION OF PROCEDURE: The patient was identified in the preoperative holding area where proper site was marked and identified by the surgeon. The patient was taken back to the operative theater, where after adequate anesthesia, the patient was placed in a left lateral decubitus position. Axillary roll was placed. All bony prominences were well padded. The patient's gluteal fold was parallel to the floor. Pegs were then padded and placed. The right hip was then sterilely prepped and draped in the usual sterile fashion. OR time-out was performed. The patient received 2 g IV Ancef. At this time, standard posterior incision was made centered over the greater trochanter. This was taken down to IT band and gluteal fascia which was incised along the incisional length. Short external rotators were identified, and takedown of the short external rotators was done from the level of the piriformis down to the lesser trochanter. The hip was then dislocated, and neck cut was completed and found to be adequate. Attention was turned to the acetabulum. Anterior and posterior acetabular retractors were placed. Circumferential removal of the labrum as well as the pulvinar was done at this time. Starting with a 48 reamer, I was able to ream up to a 54 which was found to have adequate purchase. A 54 mm Tritanium II acetabular cup was impacted in place in roughly 45 to 50 degrees of abduction and 20 to 30 degrees of anteversion. The 36 mm flat liner was then impacted into place and found to be adequately secured. Attention was turned to the femur. Box chisel was used out laterally. Starter awl was placed down the canal. Starting with the 0 broach, I was able to broach up to a size 7 which was found to be rotationally and vertically stable. I trialed a 0 head, and that was found to be a little long. So, at this time, we did a -5 and was found to have adequate baptist of leg lengths, and it was stable throughout range of motion. At this time, the Accolade II stem was impacted into place after the trial components were removed, and a 36 -5 Biolox femoral head was impacted into place. Hip was then relocated. A #5 Ethibond suture was used for closure of the piriformis as well as the capsule. One liter of dilute Betadine solution was irrigated through the hip along with 3 L of pulse lavage irrigation with Ancef. Topical tranexamic acid and vancomycin powder were placed in the wound. A #2 barbed suture was used for closure of the IT band and gluteal fascia. 2 Vicryl was used subcutaneously, and Prineo was used for the skin. The patient tolerated the procedure well and was sent to the PACU in stable condition. MMODAL /[id number]
== END 2019-02-22 12:42 | disposition home or self-care (01) | DRG 470 ==
LOC: JD.MS 08:09
PROVIDERS: ADMIT Orthopaedic Surgery; ATTEND Orthopaedic Surgery
PROC: 0SR90JZ Replacement of Right Hip Joint with Synthetic Substitute, Open Approach (ICD-10-PCS; principal; 2019-02-21)
DX: M16.11 Unilateral primary osteoarthritis, right hip (principal); E78.00 Pure hypercholesterolemia, unspecified; E78.5 Hyperlipidemia, unspecified; Z91.038 Other insect allergy status; Z88.0 Allergy status to penicillin; Z79.899 Other long term (current) drug therapy; Z79.82 Long term (current) use of aspirin; Z98.41 Cataract extraction status, right eye; Z86.010 Personal history of colon polyps; Z98.42 Cataract extraction status, left eye; Z88.1 Allergy status to other antibiotic agents
CPT/HCPCS: 01214; 36415; 73502-26-RT; 73502-RT; 80053; 85027; 85610; 85730; 86850; 86900; 86901; 87641; 97110-GP; 97116-GP; 97161-GP; 97165-GO; 97535-GO; A9270-GY; C1776; J0171; J0690; J0697; J1885; J2001; J2250; J2270; J2405; J2704; J3010; J3370; J3490; J7050; J7120

== ENCOUNTER 2019-05-23 07:30 | Inpatient (IN) | payer MEDICARE, OTHER ==
[2019-07-25] MEDS ORDERED: Lactated Ringers 1,000 ML IV SCH (00:01)
[2019-07-25] MEDS ORDERED: Sodium Chloride 0.9% 10 ML Syringe FLUSH PRN (00:01)
[2019-07-25] MEDS ORDERED: Lidocaine 1%/Sod Bicarbonate in NS 8.4% 1 ML Syringe IDERM PRN (00:01)
[2019-07-25] MEDS ORDERED: Acetaminophen 325 MG Tab PO SCH (06:00)
[2019-07-25] MEDS ORDERED: Pregabalin 25 MG Cap PO SCH (06:00)
[2019-07-25] MEDS ORDERED: oxyCODONE ER 10 MG TAB.ER PO SCH (06:00)
[2019-07-25] MEDS ORDERED: Naloxone 0.4 MG/ML SDV IVPUSH PRN (07:08)
[2019-07-25] MEDS ORDERED: Magnesium Hydroxide 400 MG/5 ML Susp 30 ML Cup PO PRN (07:08)
[2019-07-25] MEDS ORDERED: Morphine 2 MG/ML Syringe IVPUSH PRN (07:08)
[2019-07-25] MEDS ORDERED: Bisacodyl 5 MG Tab PO PRN (07:08)
[2019-07-25] MEDS ORDERED: Sennosides 8.6 MG Tab PO PRN (07:08)
--- NOTE | 2019-07-25 10:15 | PCM.CONS ---
H&P History of Present Illness - General Date of Service: 07/25/19 Admit Problem/Dx: Admission Diagnosis/Problem Admission Diagnosis/Problem Osteoarthritis of hip Source of Information: Patient, Old Records, Provider, RN, RN Notes Reviewed History Limitations: Reports: No Limitations - History of Present Illness Initial Comments - Free Text/Narative: Apple Meléndez is a 64 yo female patient of Dr. Infante who is post-operative day 0 of left JOSE DANIEL. Hospital medicine was consulted for post-operative medical care of the following listed medical conditions. At this time she is resting comfortably in bed. Pain is controlled. She denies any chest pain, shortness of breath, palpitations, nausea, or vomiting. She carries a history of: OA, HLD, Osteopenia, Eczema, Colon polyps. She was never a smoker. She is a full code. Her primary care provider is Tory Hyde NP in [place]. Left hip Pain Score (Numeric/FACES): 8 - Related Data Allergies/Adverse Reactions: Allergies Allergy/AdvReac Type Severity Reaction Status Date / Time ampicillin Allergy Hives Verified 07/25/19 11:03 Penicillins Allergy Hives Verified 07/25/19 11:03 Home Medications: Home Meds Cholecalciferol (Vitamin D3) [Vitamin D3] 1 cap PO DAILY 02/21/19 [History] L.acidoph,Paracasei, B.lactis [Probiotic] 1 cap PO DAILY 02/21/19 [History] Multivitamin [Multivitamins] 1 cap PO DAILY 02/21/19 [History] Rosuvastatin [Crestor] 5 mg PO DAILY 02/21/19 [History] estradioL [Estrace 0.01% Vaginal Crm] 1 gram VAG ASDIRECTED PRN 02/21/19 [ History] Ascorbic Acid [Vitamin C] 500 mg PO DAILY 07/24/19 [History] Calcium Carb/Vitamin D3/Vit K1 [Calcium + D Soft Chewable Tab] 1 tab PO DAILY [History] Cyanocobalamin (Vitamin B-12) [Vitamin B-12] 1,000 mcg PO DAILY 07/24/19 [ History] Fish Oil/DHA/EPA [Fish Oil 1,200 MG] 1 cap PO DAILY 07/24/19 [History] Glucosamine Sulfate Dipot Chlr [Glucosamine] 1,000 mg PO DAILY 07/24/19 [History ] Naproxen Sod/Diphenhydramine [Aleve Pm Caplet] 1 tab PO DAILY 07/24/19 [History] Past Medical History HEENT History: Reports: Cataract Cardiovascular History: Reports: High Cholesterol Respiratory History: Reports: None Gastrointestinal History: Reports: Colon Polyp Genitourinary History: Reports: None COUNSELING SERVICES DIRECTOR History: Reports: Other (See Below) Other OB/BYN History: cervical polyp Musculoskeletal History: Reports: Arthritis Neurological History: Reports: None Psychiatric History: Reports: None Endocrine/Metabolic History: Reports: None Hematologic History: Reports: None Immunologic History: Reports: None Oncologic (Cancer) History: Reports: None Dermatologic History: Reports: Eczema - Infectious Disease History Infectious Disease History: Reports: Chicken Pox, Measles - Past Surgical History HEENT Surgical History: Reports: Cataract Surgery, Oral Surgery Other HEENT Surgeries/Procedures: Dental implants Cardiovascular Surgical History: Reports: None Respiratory Surgical History: Reports: None GI Surgical History: Reports: Colonoscopy Endocrine Surgical History: Reports: None Neurological Surgical History: Reports: None Musculoskeletal Surgical History: Reports: Arthroscopic Procedure Oncologic Surgical History: Reports: None Dermatological Surgical History: Reports: None Social & Family History - Family History Family Medical History: Noncontributory - Tobacco Use Smoking Status *Q: Never Smoker Second Hand Smoke Exposure: No - Caffeine Use Caffeine Use: Reports: Coffee, Soda, Tea H&P Review of Systems - Review of Systems: Review Of Systems: See Below General: Reports: No Symptoms. Denies: Fever, Chills HEENT: Reports: No Symptoms. Denies: Headaches, Sore Throat Pulmonary: Reports: No Symptoms. Denies: Shortness of Breath, Wheezing, Cough, Sputum Cardiovascular: Reports: No Symptoms. Denies: Chest Pain, Palpitations, Dyspnea on Exertion Gastrointestinal: Reports: No Symptoms. Denies: Abdominal Pain, Constipation, Diarrhea, Nausea, Vomiting Genitourinary: Reports: No Symptoms. Denies: Abnormal Menses Musculoskeletal: Reports: Leg Pain (left) Skin: Reports: No Symptoms. Denies: Cyanosis Psychiatric: Reports: No Symptoms. Denies: Confusion Neurological: Reports: Difficulty Walking, Gait Disturbance Hematologic/Lymphatic: Reports: No Symptoms Immunologic: Reports: No Symptoms Exam - Exam Exam: See Below - Exam Quality Assessment: DVT Prophylaxis General: Alert, Oriented, Cooperative. No: Mild Distress HEENT: Conjunctiva Clear, EACs Clear, EOMI, Hearing Intact, Mucosa Moist & [place] , Nares Patent, Posterior Pharynx Clear, PERRLA Neck: Supple, Trachea Midline Lungs: Clear to Auscultation, Normal Respiratory Effort Cardiovascular: Regular Rate, Regular Rhythm GI/Abdominal Exam: Normal Bowel Sounds, Soft, Non-Tender, No Distention Rectal (Female) Exam: Deferred Back Exam: Normal Inspection, Full Range of Motion Extremities: Normal Capillary Refill, Leg Pain, Limited Range of Motion, Other ( Bandage in place on left leg. Bandage is dry and intact. Cooling pack in place.) Peripheral Pulses: 3+: Radial (L), Radial (R), Dorsalis Pedis (L), Dorsalis Pedis (R) Skin: Warm, Dry, Intact Neurological: Cranial Nerves Intact (Grossly ) Neuro Extensive - Mental Status: Alert, Oriented x3, Normal Mood/Affect Consult PN Assessment/Plan POD#: 0 Procedures: Procedures BLOOD TYPING SEROLOGIC ABO (02/21/19) BLOOD TYPING SEROLOGIC RH(D) (02/21/19) COMPLETE CBC AUTOMATED (02/21/19) COMPREHEN METABOLIC PANEL (02/21/19) DRAIN/INJ JOINT/BURSA W/O US (10/22/18) GAIT TRAINING THERAPY (02/21/19) MR-STAPH DNA AMP PROBE (02/21/19) OT EVAL LOW COMPLEX 30 MIN (02/21/19) PROTHROMBIN TIME (02/21/19) PT EVAL LOW COMPLEX 20 MIN (02/21/19) RBC ANTIBODY SCREEN (02/21/19) ROUTINE VENIPUNCTURE (02/21/19) SELF CARE MNGMENT TRAINING (02/21/19) THERAPEUTIC EXERCISES (02/21/19) THROMBOPLASTIN TIME PARTIAL (02/21/19) X-RAY EXAM HIP UNI 2-3 VIEWS (02/21/19) (1) S/P total hip arthroplasty SNOMED Code(s): 106158496097, 217912444976 Code(s): Z96.649 - PRESENCE OF UNSPECIFIED ARTIFICIAL HIP JOINT Priority: High Current Visit: Yes Qualifiers: Laterality: left Qualified Code(s): Z96.642 - Presence of left artificial hip joint (2) Osteoarthritis SNOMED Code(s): 771764491 Code(s): M19.90 - UNSPECIFIED OSTEOARTHRITIS, UNSPECIFIED SITE Priority: High Current Visit: Yes Qualifiers: Osteoarthritis location: hip Osteoarthritis type: primary Laterality: left Qualified Code(s): M16.12 - Unilateral primary osteoarthritis, left hip (3) HLD (hyperlipidemia) SNOMED Code(s): 31951471 Code(s): E78.5 - HYPERLIPIDEMIA, UNSPECIFIED Priority: Low Current Visit : No Qualifiers: Hyperlipidemia type: unspecified Qualified Code(s): E78.5 - Hyperlipidemia , unspecified (4) Osteopenia SNOMED Code(s): 006146740 Code(s): M85.80 - OTH DISRD OF BONE DENSITY AND STRUCTURE, UNSPECIFIED SITE Priority: Medium Current Visit: No Qualifiers: Osteopenia location: unspecified Qualified Code(s): M85.80 - Other specified disorders of bone density and structure, unspecified site (5) Eczema SNOMED Code(s): 31140196 Code(s): L30.9 - DERMATITIS, UNSPECIFIED Priority: Low Current Visit: No Qualifiers: Eczema type: unspecified Qualified Code(s): L30.9 - Dermatitis, unspecified (6) Colon polyps SNOMED Code(s): 65544805 Code(s): K63.5 - POLYP OF COLON Priority: Low Current Visit: No Qualifiers: Colon polyp type: unspecified Colon location: unspecified part of colon Qualified Code(s): K63.5 - Polyp of colon Problem List Initiated/Reviewed/Updated: Yes Plan: I/P: Acute: S/P left total hip arthroplasty - post-operative day 0 -DVT prophylaxis and pain management per primary care team -PT/OT -IS/RT -Monitor oxygen saturation -Titrate oxygen as needed -Home medications reviewed -Vital signs stable -Monitor labs -Pre-operative Hgb was 14.4 -Pre-operative GFR was >60 Osteoarthritis of left hip -Pain management per primary care team Chronic: HLD Osteopenia Eczema Colon polyps Plan: CM for discharge planning GI prophylaxis Home medications as indicated Other orders as listed above Routine AM labs She is a full code. Her PCP is Tory Hyde NP Thank you for allowing us to participate in the care of this patient!! Requesting Provider: Dr. Infante Date Consult Requested: 07/25/19 Patient History Reviewed: Yes Admission H&P Reviewed: Yes Notified Requestor: Yes
--- NOTE | 2019-07-25 10:55 | PCM.PREANE ---
Preanesthetic Assessment - Anesthesia/Transfusion/Family Hx Anesthesia History: Prior Anesthesia Without Reaction Family History of Anesthesia Reaction: No Transfusion History: No Prior Transfusion(s) - Review of Systems General: No Symptoms Pulmonary: No Symptoms Cardiovascular: No Symptoms Gastrointestinal: No Symptoms Neurological: No Symptoms Other: Reports: None - Physical Assessment NPO Status Date: 07/25/19 NPO Status Time: 00:00 ASA Class: 2 Mental Status: Alert & Oriented x3 Airway Class: Mallampati = 1 Dentition: Reports: Normal Dentition Thyro-Mental Finger Breadths: 3 Mouth Opening Finger Breadths: 3 ROM/Head Extension: Full Lungs: Clear to Auscultation, Normal Respiratory Effort Cardiovascular: Regular Rate, Regular Rhythm - Lab Values: Laboratory Last Values SARS Virus RNA (PCR) Negative (NEGATIVE) 07/22/19 10:00 MRSA (PCR) Negative 07/13/19 15:15 - Allergies Allergies/Adverse Reactions: Allergies Allergy/AdvReac Type Severity Reaction Status Date / Time ampicillin Allergy Hives Verified 07/24/19 10:44 Penicillins Allergy Hives Verified 10/22/18 12:04 - Acknowledgements Anesthesia Type Planned: Spinal Pt an Appropriate Candidate for the Planned Anesthesia: Yes Alternatives and Risks of Anesthesia Discussed w Pt/Guardian: Yes Pt/Guardian Understands and Agrees with Anesthesia Plan: Yes PreAnesthesia Questionnaire HEENT History: Reports: Cataract Cardiovascular History: Reports: High Cholesterol Respiratory History: Reports: None Gastrointestinal History: Reports: Colon Polyp Genitourinary History: Reports: None SITE ACQUISITION MANAGER History: Reports: Other (See Below) Other OB/BYN History: cervical polyp Musculoskeletal History: Reports: Arthritis Neurological History: Reports: None Psychiatric History: Reports: None Endocrine/Metabolic History: Reports: None Hematologic History: Reports: None Immunologic History: Reports: None Oncologic (Cancer) History: Reports: None Dermatologic History: Reports: Eczema - Infectious Disease History Infectious Disease History: Reports: Chicken Pox, Measles - Past Surgical History HEENT Surgical History: Reports: Cataract Surgery, Oral Surgery Other HEENT Surgeries/Procedures: Dental implants Cardiovascular Surgical History: Reports: None Respiratory Surgical History: Reports: None GI Surgical History: Reports: Colonoscopy Endocrine Surgical History: Reports: None Neurological Surgical History: Reports: None Musculoskeletal Surgical History: Reports: Arthroscopic Procedure, Hip Replacement ((R)) Oncologic Surgical History: Reports: None Dermatological Surgical History: Reports: None - SUBSTANCE USE Smoking Status *Q: Never Smoker Second Hand Smoke Exposure: No - HOME MEDS Home Medications: Home Meds Cholecalciferol (Vitamin D3) [Vitamin D3] 1 cap PO DAILY 02/21/19 [History] L.acidoph,Paracasei, B.lactis [Probiotic] 1 cap PO DAILY 02/21/19 [History] Multivitamin [Multivitamins] 1 cap PO DAILY 02/21/19 [History] Rosuvastatin [Crestor] 5 mg PO DAILY 02/21/19 [History] estradioL [Estrace 0.01% Vaginal Crm] 1 gram VAG ASDIRECTED 02/21/19 [History] Ascorbic Acid [Vitamin C] 500 mg PO DAILY 07/24/19 [History] Calcium Carb/Vitamin D3/Vit K1 [Calcium + D Soft Chewable Tab] 1 tab PO DAILY [History] Cyanocobalamin (Vitamin B-12) [Vitamin B-12] 1,000 mcg PO DAILY 07/24/19 [ History] Fish Oil/DHA/EPA [Fish Oil 1,200 MG] 1 cap PO DAILY 07/24/19 [History] Glucosamine Sulfate Dipot Chlr [Glucosamine] 1,000 mg PO DAILY 07/24/19 [History ] Naproxen Sod/Diphenhydramine [Aleve Pm Caplet] 1 tab PO DAILY 07/24/19 [History] Vitamin A Palmitate [Vitamin A] 10,000 unit PO DAILY 07/24/19 [History] - CURRENT (IN HOUSE) MEDS Current Meds: Current Medications Acetaminophen (Tylenol) 975 mg PO ONETIME TORO Stop: 07/25/19 14:00 Aspirin (Ecotrin) 325 mg PO BID TORO Bisacodyl (Dulcolax) 5 mg PO DAILY PRN PRN Reason: Constipation Morphine Sulfate 8 mg/Epinephrine HCl 0.3 mg/Cefuroxime Sodium 750 mg/Ketorolac Tromethamine 30 mg/Sodium Chloride 7.9 ml 0 mg .XX ASDIRECTED PRN PRN Reason: Pain Stop: 07/25/19 15:00 Docusate Sodium (Colace) 100 mg PO BID TORO Famotidine (Pepcid) 20 mg PO Q12H TORO Lactated Ringer's (Ringers, Lactated) 1,000 mls @ 125 mls/hr IV ASDIRECTED TORO Stop: 07/25/19 23:00 Cefazolin Sodium/Dextrose 2 gm (/ Premix) 50 mls @ 100 mls/hr IV Q8H TORO Stop: 07/25/19 23:44 Ketorolac Tromethamine (Toradol) 15 mg IVPUSH Q6H PRN PRN Reason: Pain Lidocaine/Sodium Bicarbonate (Buffered Lidocaine 1% In Ns 8.4%) 0.25 ml IDERM ONETIME PRN PRN Reason: Prior to IV Start Stop: 07/25/19 23:00 Magnesium Hydroxide (Milk Of Magnesia) 30 ml PO BID PRN PRN Reason: Constipation Morphine Sulfate (Morphine) 2 mg IVPUSH Q2H PRN PRN Reason: Breakthrough Pain Naloxone HCl (Narcan) 0.1 mg IVPUSH Q5M PRN PRN Reason: Oversedation Ondansetron HCl (Zofran) 4 mg IVPUSH Q6H PRN PRN Reason: Nausea/Vomiting Oxycodone HCl (Oxycontin) 10 mg PO ONETIME TORO Stop: 07/25/19 14:00 Oxycodone/Acetaminophen (Percocet 325-5 Mg) 1 - 2 tab PO Q4H PRN PRN Reason: Pain Pregabalin (Lyrica) 50 mg PO ONETIME TORO Stop: 07/25/19 14:00 Senna (Senna) 8.6 mg PO BID PRN PRN Reason: Constipation Sodium Chloride (Saline Flush) 10 ml FLUSH ASDIRECTED PRN PRN Reason: Keep Vein Open Stop: 07/25/19 18:00
[2019-07-25] MEDS ORDERED: ceFAZolin 1 GM Vial ONE (10:58)
[2019-07-25] MEDS ORDERED: Lidocaine 1% 4 ML ONE (10:59)
[2019-07-25] MEDS ORDERED: Propofol 200 MG/20 ML SDV ONE (10:59)
[2019-07-25] MEDS ORDERED: Midazolam 1 MG/ML 2 ML SDV ONE (11:02)
[2019-07-25] MEDS ORDERED: fentaNYL 100 MCG/2 ML SDV ONE (11:03)
[2019-07-25] MEDS ORDERED: Vancomycin 1 GM SDV ONE (11:32)
[2019-07-25] MEDS ORDERED: Ondansetron 4 MG/2 ML SDV IVPUSH PRN (13:23)
[2019-07-25] MEDS ORDERED: fentaNYL 100 MCG/2 ML SDV IVPUSH PRN (13:23)
[2019-07-25] MEDS: Iodine/Sodium Iodide 2% Tincture 30 ML Bottle ONE ×2 (13:42→13:45)
[2019-07-25] MEDS ORDERED: Ondansetron 4 MG/2 ML SDV ONE (13:42)
[2019-07-25] MEDS: Bupivacaine 0.25% 10 ML SDV ONE ×2 (13:42→13:47)
[2019-07-25] MEDS: ceFAZolin 1 GM Vial ONE ×2 (13:42→13:46)
[2019-07-25] MEDS: Vancomycin 1 GM SDV ONE ×2 (13:43→13:49)
[2019-07-25] MEDS: Morphine Sulfate 8 MG, EPINEPHrine 0.3 MG, Cefuroxime 750 MG, Ketorolac 30 MG, Sodium C... PRN ×10 (13:43→13:48)
[2019-07-25] MEDS ORDERED: Ketorolac 30 MG/ML SDV ONE (14:11)
--- NOTE | 2019-07-25 14:25 | PCM.POSTAN ---
POST ANESTHESIA ASSESSMENT - MENTAL STATUS Mental Status: Alert, Oriented - VITAL SIGNS Vital Signs: Last Vital Signs Temp 36.1 C 07/25/19 10:15 Pulse 63 07/25/19 10:15 Resp 16 07/25/19 10:15 BP 131/71 07/25/19 10:15 Pulse Ox 97 07/25/19 10:15 - RESPIRATORY Respiratory Status: Respiratory Rate WNL, Airway Patent, O2 Saturation Stable - CARDIOVASCULAR CV Status: Pulse Rate WNL, Blood Pressure Stable - GASTROINTESTINAL GI Status: No Symptoms - PAIN Pain Score: 0 - POST OP HYDRATION Hydration Status: Adequate & Stable
--- NOTE | 2019-07-25 14:58 | CR ---
Pelvis and left hip: AP view of the pelvis was obtained as well as crosstable lateral view left hip. Comparison: Previous pelvis and right hip study of 02/21/19. Bilateral hip prosthesis are noted. Left hip prosthesis has been recently placed. Underlying bony structures are intact. No additional abnormality is seen. Impression: 1. Bilateral hip prosthesis. Diagnostic code #2 This report was dictated in MD[facility]
--- NOTE | 2019-07-25 15:18 | PCM48HPAN ---
Post Anesthesia Note - EVALUATION WITHIN 48HRS OF ANESTHETIC Vital Signs in Normal Range: Yes Patient Participated in Evaluation: Yes Respiratory Function Stable: Yes Airway Patent: Yes Cardiovascular Function Stable: Yes Hydration Status Stable: Yes Pain Control Satisfactory: Yes Nausea and Vomiting Control Satisfactory: Yes Mental Status Recovered: Yes Vital Signs: Last Vital Signs Temp 36.1 C 07/25/19 15:00 Pulse 59 L 07/25/19 14:30 Resp 12 07/25/19 15:00 BP 107/62 07/25/19 15:00 Pulse Ox 98 07/25/19 15:00
[2019-07-25] MEDS: ceFAZolin 2 GM in Premix Bag 1 BAG IV SCH (18:13)
[2019-07-25] MEDS: Acetaminophen/oxyCODONE 325-5 MG Tab PO PRN (18:18)
[2019-07-25] MEDS: Ondansetron 4 MG/2 ML SDV IVPUSH PRN (18:56)
[2019-07-25] MEDS ORDERED: Rosuvastatin 10 MG Tab PO SCH (21:00)
[2019-07-25] MEDS: Famotidine 20 MG Tab PO SCH (21:29)
[2019-07-25] MEDS: Docusate Sodium 100 MG Cap PO SCH (21:29)
[2019-07-25] MEDS: Ketorolac 15 MG/ML SDV IVPUSH PRN (21:32)
[2019-07-26] MEDS: ceFAZolin 2 GM in Premix Bag 1 BAG IV SCH ×2 (03:06→10:06)
[2019-07-26] MEDS: Acetaminophen/oxyCODONE 325-5 MG Tab PO PRN (03:44)
--- NOTE | 2019-07-26 08:07 | PCM.CONSN ---
- General Info Date of Service: 07/26/19 Admission Dx/Problem (Free Text): Admission Diagnosis/Problem Admission Diagnosis/Problem Osteoarthritis of hip Functional Status: Reports: Pain Controlled, Tolerating Diet, Ambulating, Urinating, Incentive Spirometry. Denies: New Symptoms - Review of Systems General: Reports: No Symptoms. Denies: Fever, Chills HEENT: Reports: No Symptoms. Denies: Headaches, Sore Throat Pulmonary: Reports: No Symptoms. Denies: Shortness of Breath, Cough, Sputum, Wheezing Cardiovascular: Reports: No Symptoms. Denies: Chest Pain, Palpitations, Dyspnea on Exertion Gastrointestinal: Reports: No Symptoms. Denies: Abdominal Pain, Constipation, Diarrhea, Nausea (none currently but had nausea this AM ), Vomiting Genitourinary: Reports: No Symptoms. Denies: Pain Musculoskeletal: Reports: Leg Pain Skin: Reports: No Symptoms. Denies: Cyanosis Neurological: Reports: Difficulty Walking, Gait Disturbance. Denies: Confusion Psychiatric: Reports: No Symptoms - Patient Data Vitals - Most Recent: Last Vital Signs Temp 98.1 F 07/26/19 03:06 Pulse 70 07/26/19 03:06 Resp 18 07/26/19 03:06 BP 131/88 07/26/19 03:06 Pulse Ox 99 07/26/19 03:06 Weight - Most Recent: 168 lb 14.4 oz I&O - Last 24 Hours: Intake & Output 07/25/19 07/26/19 07/26/19 22:59 06:59 14:59 Intake Total 830 800 Output Total 1600 Balance 830 -800 Lab Results Last 24 Hours: Laboratory Results - last 24 hr 07/25/19 07/26/19 07/26/19 Range/Units 10:34 05:07 05:07 WBC 8.79 (3.98-10.04) K/mm3 RBC 3.84 L (3.98-5.22) M/mm3 Hgb 11.5 (11.2-15.7) gm/dl Hct 34.8 (34.1-44.9) % MCV 90.6 (79.4-94.8) fl MCH 29.9 (25.6-32.2) pg MCHC 33.0 (32.2-35.5) g/dl RDW Std Deviation 39.8 (36.4-46.3) fL Plt Count 139 L (182-369) K/mm3 MPV 11.0 (9.4-12.3) fl Sodium 139 (136-145) mEq/L Potassium 3.9 (3.5-5.1) mEq/L Chloride 105 (98-107) mEq/L Carbon Dioxide 27 (21-32) mEq/L Anion Gap 10.9 (5-15) BUN 15 (7-18) mg/dL Creatinine 0.8 (0.55-1.02) mg/dL Est Cr Clr Drug Dosing 59.73 mL/min Estimated GFR (MDRD) > 60 (>60) mL/min BUN/Creatinine Ratio 18.8 H (14-18) Glucose 122 H (80-115) mg/dL Calcium 8.3 L (8.5-10.1) mg/dL Total Bilirubin 0.5 (0.2-1.0) mg/dL AST 29 (15-37) U/L ALT 26 (14-59) U/L Alkaline Phosphatase 74 (46-116) U/L Total Protein 5.8 L (6.4-8.2) g/dl Albumin 2.9 L (3.4-5.0) g/dl Globulin 2.9 gm/dL Albumin/Globulin Ratio 1.0 (1-2) Blood Type O POSITIVE Gel Antibody Screen Negative Med Orders - Current: Current Medications Aspirin (Ecotrin) 325 mg PO BID [facility] Bisacodyl (Dulcolax) 5 mg PO DAILY PRN PRN Reason: Constipation Cholecalciferol (Vitamin D3) 50 mcg PO DAILY [facility] Cyanocobalamin (Vitamin B12) 1,000 mcg PO DAILY [facility] Docusate Sodium (Colace) 100 mg PO BID [facility] Last Admin: 07/25/19 21:29 Dose: 100 mg Famotidine (Pepcid) 20 mg PO Q12H [facility] Last Admin: 07/25/19 21:29 Dose: 20 mg Cefazolin Sodium/Dextrose 2 gm (/ Premix) 50 mls @ 100 mls/hr IV Q8H [facility] Stop: 07/26/19 11:29 Last Admin: 07/26/19 03:06 Dose: 100 mls/hr Ketorolac Tromethamine (Toradol) 15 mg IVPUSH Q6H PRN PRN Reason: Pain Last Admin: 07/25/19 21:32 Dose: 15 mg Magnesium Hydroxide (Milk Of Magnesia) 30 ml PO BID PRN PRN Reason: Constipation Morphine Sulfate (Morphine) 2 mg IVPUSH Q2H PRN PRN Reason: Breakthrough Pain Naloxone HCl (Narcan) 0.1 mg IVPUSH Q5M PRN PRN Reason: Oversedation Ondansetron HCl (Zofran) 4 mg IVPUSH Q6H PRN PRN Reason: Nausea/Vomiting Last Admin: 07/25/19 18:56 Dose: 4 mg Oxycodone/Acetaminophen (Percocet 325-5 Mg) 1 - 2 tab PO Q4H PRN PRN Reason: Pain Last Admin: 07/26/19 03:44 Dose: 2 tab Rosuvastatin Calcium (Crestor) 5 mg PO BEDTIME [facility] Last Admin: 07/25/19 21:29 Dose: 5 mg Senna (Senna) 8.6 mg PO BID PRN PRN Reason: Constipation Discontinued Medications Acetaminophen (Tylenol) 975 mg PO ONETIME [facility] Stop: 07/25/19 14:00 Last Admin: 07/25/19 10:39 Dose: 975 mg Bupivacaine HCl (Sensorcaine-Mpf 0.25%) Confirm Administered Dose 30 ml .ROUTE .STK-MED ONE Stop: 07/25/19 10:57 Last Admin: 07/25/19 13:42 Dose: 30 ml Cefazolin Sodium (Ancef) Confirm Administered Dose 2 gm .ROUTE .STK-MED ONE Stop: 07/25/19 10:59 Cefazolin Sodium (Ancef) Confirm Administered Dose 2 gm .ROUTE .STK-MED ONE Stop: 07/25/19 11:01 Last Admin: 07/25/19 13:42 Dose: 2 gm Morphine Sulfate 8 mg/Epinephrine HCl 0.3 mg/Cefuroxime Sodium 750 mg/Ketorolac Tromethamine 30 mg/Sodium Chloride 7.9 ml 0 mg .XX ASDIRECTED PRN PRN Reason: Pain Stop: 07/25/19 15:00 Last Admin: 07/25/19 13:43 Dose: 788.3 mg Fentanyl (Sublimaze) Confirm Administered Dose 100 mcg .ROUTE .STK-MED ONE Stop: 07/25/19 11:04 Fentanyl (Sublimaze) 50 mcg IVPUSH Q5M PRN PRN Reason: Pain Lactated Ringer's (Ringers, Lactated) 1,000 mls @ 125 mls/hr IV ASDIRECTED [facility] Stop: 07/25/19 23:00 Last Admin: 07/25/19 10:30 Dose: 125 mls/hr Lidocaine HCl (Xylocaine-Mpf 1%) Confirm Administered Dose 4 mls @ as directed .ROUTE .STK-MED ONE Stop: 07/25/19 11:00 Iodine (Iodine 2% Mild Tincture) Confirm Administered Dose 30 ml .ROUTE .STK- MED ONE Stop: 07/25/19 10:57 Last Admin: 07/25/19 13:42 Dose: 18 ml Ketorolac Tromethamine (Toradol) Confirm Administered Dose 30 mg .ROUTE .STK- MED ONE Stop: 07/25/19 14:12 Lidocaine/Sodium Bicarbonate (Buffered Lidocaine 1% In Ns 8.4%) 0.25 ml IDERM ONETIME PRN PRN Reason: Prior to IV Start Stop: 07/25/19 23:00 Last Admin: 07/25/19 10:30 Dose: 0.25 ml Midazolam HCl (Versed 1 Mg/Ml) Confirm Administered Dose 2 mg .ROUTE .STK-MED ONE Stop: 07/25/19 11:03 Ondansetron HCl (Zofran) 4 mg IVPUSH ONETIME PRN PRN Reason: Nausea/Vomiting Ondansetron HCl (Zofran) Confirm Administered Dose 4 mg .ROUTE .STK-MED ONE Stop: 07/25/19 13:43 Oxycodone HCl (Oxycontin) 10 mg PO ONETIME [facility] Stop: 07/25/19 14:00 Last Admin: 07/25/19 10:39 Dose: 10 mg Pregabalin (Lyrica) 50 mg PO ONETIME [facility] Stop: 07/25/19 14:00 Last Admin: 07/25/19 10:39 Dose: 50 mg Propofol (Diprivan 20 Ml) Confirm Administered Dose 200 mg .ROUTE .STK-MED ONE Stop: 07/25/19 11:00 Sodium Chloride (Saline Flush) 10 ml FLUSH ASDIRECTED PRN PRN Reason: Keep Vein Open Stop: 07/25/19 18:00 Tranexamic Acid (Cyklokapron) Confirm Administered Dose 1,000 mg .ROUTE .STK- MED ONE Stop: 07/25/19 10:57 Last Admin: 07/25/19 13:43 Dose: 1,000 mg Vancomycin HCl (Vancomycin) Confirm Administered Dose 1 gm .ROUTE .STK-MED ONE Stop: 07/25/19 10:57 Last Admin: 07/25/19 13:43 Dose: 1 gm Vancomycin HCl (Vancomycin) Confirm Administered Dose 1 gm .ROUTE .[facility]-MED ONE Stop: 07/25/19 11:33 - Exam Quality Assessment: DVT Prophylaxis. No: Supplemental Oxygen General: Alert, Oriented, Cooperative, No Acute Distress HEENT: Pupils Equal, Pupils Reactive, Mucous Membr. Moist/[place] Neck: Supple, Trachea Midline Lungs: Clear to Auscultation, Normal Respiratory Effort Cardiovascular: Regular Rate, Regular Rhythm GI/Abdominal Exam: Normal Bowel Sounds, Soft, Non-Tender, No Distention (Female) Exam: Deferred Back Exam: Normal Inspection, Full Range of Motion Extremities: Normal Capillary Refill, Leg Pain, Limited Range of Motion, Other ( Bandage in palce on left leg. Cooling pack in place. ) Peripheral Pulses: 2+: Radial (L), Radial (R), Dorsalis Pedis (L), Dorsalis Pedis (R) Skin: Warm, Dry, Intact Wound/Incisions: Dressing Dry and Intact Neurological: No New Focal Deficit Psy/Mental Status: Alert, Normal Affect, Normal Mood Consult PN Assessment/Plan POD#: 1 Procedures: Procedures BLOOD TYPING SEROLOGIC ABO (02/21/19) BLOOD TYPING SEROLOGIC RH(D) (02/21/19) COMPLETE CBC AUTOMATED (02/21/19) COMPREHEN METABOLIC PANEL (02/21/19) DRAIN/INJ JOINT/BURSA W/O US (10/22/18) GAIT TRAINING THERAPY (02/21/19) MR-STAPH DNA AMP PROBE (02/21/19) OT EVAL LOW COMPLEX 30 MIN (02/21/19) PROTHROMBIN TIME (02/21/19) PT EVAL LOW COMPLEX 20 MIN (02/21/19) RBC ANTIBODY SCREEN (02/21/19) ROUTINE VENIPUNCTURE (02/21/19) SELF CARE MNGMENT TRAINING (02/21/19) THERAPEUTIC EXERCISES (02/21/19) THROMBOPLASTIN TIME PARTIAL (02/21/19) X-RAY EXAM HIP UNI 2-3 VIEWS (02/21/19) (1) S/P total hip arthroplasty SNOMED Code(s): 077894303175, 760344657957 Code(s): Z96.649 - PRESENCE OF UNSPECIFIED ARTIFICIAL HIP JOINT Priority: High Current Visit: Yes Qualifiers: Laterality: left Qualified Code(s): Z96.642 - Presence of left artificial hip joint (2) Osteoarthritis SNOMED Code(s): 216400515 Code(s): M19.90 - UNSPECIFIED OSTEOARTHRITIS, UNSPECIFIED SITE Priority: High Current Visit: Yes Qualifiers: Osteoarthritis location: hip Osteoarthritis type: primary Laterality: left Qualified Code(s): M16.12 - Unilateral primary osteoarthritis, left hip (3) HLD (hyperlipidemia) SNOMED Code(s): 60311743 Code(s): E78.5 - HYPERLIPIDEMIA, UNSPECIFIED Priority: Low Current Visit : No Qualifiers: Hyperlipidemia type: unspecified Qualified Code(s): E78.5 - Hyperlipidemia , unspecified (4) Osteopenia SNOMED Code(s): 149629982 Code(s): M85.80 - OTH DISRD OF BONE DENSITY AND STRUCTURE, UNSPECIFIED SITE Priority: Medium Current Visit: No Qualifiers: Osteopenia location: unspecified Qualified Code(s): M85.80 - Other specified disorders of bone density and structure, unspecified site (5) Eczema SNOMED Code(s): 62693877 Code(s): L30.9 - DERMATITIS, UNSPECIFIED Priority: Low Current Visit: No Qualifiers: Eczema type: unspecified Qualified Code(s): L30.9 - Dermatitis, unspecified (6) Colon polyps SNOMED Code(s): 67389873 Code(s): K63.5 - POLYP OF COLON Priority: Low Current Visit: No Qualifiers: Colon polyp type: unspecified Colon location: unspecified part of colon Qualified Code(s): K63.5 - Polyp of colon Problem List Initiated/Reviewed/Updated: Yes My Orders Last 24 Hours: My Active Orders 07/25/19 15:21 Patient Status [ADT] Routine 07/25/19 21:00 Rosuvastatin [Crestor] 5 mg PO BEDTIME 07/26/19 09:00 Cholecalciferol (Vitamin D3) [Vitamin D3] 50 mcg PO DAILY Cyanocobalamin (Vitamin B12) [Vitamin B12] 1,000 mcg PO DAILY Plan: I/P: Acute: S/P left total hip arthroplasty - post-operative day 1 -DVT prophylaxis and pain management per primary care team -PT/OT -IS/RT -Monitor oxygen saturation -Titrate oxygen as needed -Home medications reviewed -Vital signs stable -Monitor labs -Pre-operative Hgb was 14.4; Now 11.5 -Pre-operative GFR was >60; Now >60 Osteoarthritis of left hip -Pain management per primary care team Chronic: HLD Osteopenia Eczema Colon polyps Plan: CM for discharge planning GI prophylaxis Home medications as indicated Other orders as listed above Routine AM labs She is a full code. Her PCP is Tory Hyde NP From a hospitalist standpoint Apple is doing well. She has been up ambulating and working with therapies. She is off of oxygen and has urinated. Her labs and vital signs remain stable. Her pain is controlled. She has been having some on and off nausea so a prescription for zofran will be sent. She is cleared for discharge pending primary team and PT/OT agreement. Thank you for allowing us to participate in the care of this patient!! Sepsis Event Note - Evaluation Sepsis Screening Result: No Definite Risk - Focused Exam Vital Signs: Vital Signs Temp Pulse Resp BP Pulse Ox 07/26/19 03:06 98.1 F 70 18 131/88 99 07/26/19 00:27 97.7 F 61 18 112/50 L 96 07/25/19 20:42 97.0 F 59 L 16 120/67 95 Date Exam was Performed: 07/26/19 Time Exam was Performed: 10:34
--- NOTE | 2019-07-26 08:25 | PCM.SURGPN ---
- General Info Date of Service: 07/26/19 POD#: 1 Functional Status: Reports: Pain Controlled, Tolerating Diet, Ambulating, Urinating, Incentive Spirometry, Other (The pt states she is doing well.) - Patient Data Vitals - Most Recent: Last Vital Signs Temp 98.1 F 07/26/19 03:06 Pulse 70 07/26/19 03:06 Resp 18 07/26/19 03:06 BP 131/88 07/26/19 03:06 Pulse Ox 99 07/26/19 03:06 Weight - Most Recent: 168 lb 14.4 oz I&O - Last 24 Hours: Intake & Output 07/25/19 07/26/19 07/26/19 22:59 06:59 14:59 Intake Total 830 800 Output Total 1600 Balance 830 -800 Lab Results Last 24 Hrs: Laboratory Results - last 24 hr 07/25/19 07/26/19 07/26/19 Range/Units 10:34 05:07 05:07 WBC 8.79 (3.98-10.04) K/mm3 RBC 3.84 L (3.98-5.22) M/mm3 Hgb 11.5 (11.2-15.7) gm/dl Hct 34.8 (34.1-44.9) % MCV 90.6 (79.4-94.8) fl MCH 29.9 (25.6-32.2) pg MCHC 33.0 (32.2-35.5) g/dl RDW Std Deviation 39.8 (36.4-46.3) fL Plt Count 139 L (182-369) K/mm3 MPV 11.0 (9.4-12.3) fl Sodium 139 (136-145) mEq/L Potassium 3.9 (3.5-5.1) mEq/L Chloride 105 (98-107) mEq/L Carbon Dioxide 27 (21-32) mEq/L Anion Gap 10.9 (5-15) BUN 15 (7-18) mg/dL Creatinine 0.8 (0.55-1.02) mg/dL Est Cr Clr Drug Dosing 59.73 mL/min Estimated GFR (MDRD) > 60 (>60) mL/min BUN/Creatinine Ratio 18.8 H (14-18) Glucose 122 H (80-115) mg/dL Calcium 8.3 L (8.5-10.1) mg/dL Total Bilirubin 0.5 (0.2-1.0) mg/dL AST 29 (15-37) U/L ALT 26 (14-59) U/L Alkaline Phosphatase 74 (46-116) U/L Total Protein 5.8 L (6.4-8.2) g/dl Albumin 2.9 L (3.4-5.0) g/dl Globulin 2.9 gm/dL Albumin/Globulin Ratio 1.0 (1-2) Blood Type O POSITIVE Gel Antibody Screen Negative Med Orders - Current: Current Medications Aspirin (Ecotrin) 325 mg PO BID [facility] Bisacodyl (Dulcolax) 5 mg PO DAILY PRN PRN Reason: Constipation Cholecalciferol (Vitamin D3) 50 mcg PO DAILY [facility] Cyanocobalamin (Vitamin B12) 1,000 mcg PO DAILY [facility] Docusate Sodium (Colace) 100 mg PO BID [facility] Last Admin: 07/25/19 21:29 Dose: 100 mg Famotidine (Pepcid) 20 mg PO Q12H [facility] Last Admin: 07/25/19 21:29 Dose: 20 mg Cefazolin Sodium/Dextrose 2 gm (/ Premix) 50 mls @ 100 mls/hr IV Q8H [facility] Stop: 07/26/19 11:29 Last Admin: 07/26/19 03:06 Dose: 100 mls/hr Ketorolac Tromethamine (Toradol) 15 mg IVPUSH Q6H PRN PRN Reason: Pain Last Admin: 07/25/19 21:32 Dose: 15 mg Magnesium Hydroxide (Milk Of Magnesia) 30 ml PO BID PRN PRN Reason: Constipation Morphine Sulfate (Morphine) 2 mg IVPUSH Q2H PRN PRN Reason: Breakthrough Pain Naloxone HCl (Narcan) 0.1 mg IVPUSH Q5M PRN PRN Reason: Oversedation Ondansetron HCl (Zofran) 4 mg IVPUSH Q6H PRN PRN Reason: Nausea/Vomiting Last Admin: 07/25/19 18:56 Dose: 4 mg Oxycodone/Acetaminophen (Percocet 325-5 Mg) 1 - 2 tab PO Q4H PRN PRN Reason: Pain Last Admin: 07/26/19 03:44 Dose: 2 tab Rosuvastatin Calcium (Crestor) 5 mg PO BEDTIME [facility] Last Admin: 07/25/19 21:29 Dose: 5 mg Senna (Senna) 8.6 mg PO BID PRN PRN Reason: Constipation Discontinued Medications Acetaminophen (Tylenol) 975 mg PO ONETIME [facility] Stop: 07/25/19 14:00 Last Admin: 07/25/19 10:39 Dose: 975 mg Bupivacaine HCl (Sensorcaine-Mpf 0.25%) Confirm Administered Dose 30 ml .ROUTE .STK-MED ONE Stop: 07/25/19 10:57 Last Admin: 07/25/19 13:42 Dose: 30 ml Cefazolin Sodium (Ancef) Confirm Administered Dose 2 gm .ROUTE .STK-MED ONE Stop: 07/25/19 10:59 Cefazolin Sodium (Ancef) Confirm Administered Dose 2 gm .ROUTE .STK-MED ONE Stop: 07/25/19 11:01 Last Admin: 07/25/19 13:42 Dose: 2 gm Morphine Sulfate 8 mg/Epinephrine HCl 0.3 mg/Cefuroxime Sodium 750 mg/Ketorolac Tromethamine 30 mg/Sodium Chloride 7.9 ml 0 mg .XX ASDIRECTED PRN PRN Reason: Pain Stop: 07/25/19 15:00 Last Admin: 07/25/19 13:43 Dose: 788.3 mg Fentanyl (Sublimaze) Confirm Administered Dose 100 mcg .ROUTE .STK-MED ONE Stop: 07/25/19 11:04 Fentanyl (Sublimaze) 50 mcg IVPUSH Q5M PRN PRN Reason: Pain Lactated Ringer's (Ringers, Lactated) 1,000 mls @ 125 mls/hr IV ASDIRECTED [facility] Stop: 07/25/19 23:00 Last Admin: 07/25/19 10:30 Dose: 125 mls/hr Lidocaine HCl (Xylocaine-Mpf 1%) Confirm Administered Dose 4 mls @ as directed .ROUTE .STK-MED ONE Stop: 07/25/19 11:00 Iodine (Iodine 2% Mild Tincture) Confirm Administered Dose 30 ml .ROUTE .STK- MED ONE Stop: 07/25/19 10:57 Last Admin: 07/25/19 13:42 Dose: 18 ml Ketorolac Tromethamine (Toradol) Confirm Administered Dose 30 mg .ROUTE .STK- MED ONE Stop: 07/25/19 14:12 Lidocaine/Sodium Bicarbonate (Buffered Lidocaine 1% In Ns 8.4%) 0.25 ml IDERM ONETIME PRN PRN Reason: Prior to IV Start Stop: 07/25/19 23:00 Last Admin: 07/25/19 10:30 Dose: 0.25 ml Midazolam HCl (Versed 1 Mg/Ml) Confirm Administered Dose 2 mg .ROUTE .STK-MED ONE Stop: 07/25/19 11:03 Ondansetron HCl (Zofran) 4 mg IVPUSH ONETIME PRN PRN Reason: Nausea/Vomiting Ondansetron HCl (Zofran) Confirm Administered Dose 4 mg .ROUTE .STK-MED ONE Stop: 07/25/19 13:43 Oxycodone HCl (Oxycontin) 10 mg PO ONETIME [facility] Stop: 07/25/19 14:00 Last Admin: 07/25/19 10:39 Dose: 10 mg Pregabalin (Lyrica) 50 mg PO ONETIME [facility] Stop: 07/25/19 14:00 Last Admin: 07/25/19 10:39 Dose: 50 mg Propofol (Diprivan 20 Ml) Confirm Administered Dose 200 mg .ROUTE .STK-MED ONE Stop: 07/25/19 11:00 Sodium Chloride (Saline Flush) 10 ml FLUSH ASDIRECTED PRN PRN Reason: Keep Vein Open Stop: 07/25/19 18:00 Tranexamic Acid (Cyklokapron) Confirm Administered Dose 1,000 mg .ROUTE .STK- MED ONE Stop: 07/25/19 10:57 Last Admin: 07/25/19 13:43 Dose: 1,000 mg Vancomycin HCl (Vancomycin) Confirm Administered Dose 1 gm .ROUTE .STK-MED ONE Stop: 07/25/19 10:57 Last Admin: 07/25/19 13:43 Dose: 1 gm Vancomycin HCl (Vancomycin) Confirm Administered Dose 1 gm .ROUTE .STK-MED ONE Stop: 07/25/19 11:33 - Exam Wound/Incisions: Dressing Dry and Intact General: Alert, Cooperative, No Acute Distress Lungs: Normal Respiratory Effort Extremities: Other (NSV intact for BLE. Kennedy's negative. Left thigh soft, nontender.) Sepsis Event Note - Evaluation Sepsis Screening Result: No Definite Risk - Focused Exam Vital Signs: Vital Signs Temp Pulse Resp BP Pulse Ox 07/26/19 03:06 98.1 F 70 18 131/88 99 07/26/19 00:27 97.7 F 61 18 112/50 L 96 07/25/19 20:42 97.0 F 59 L 16 120/67 95 Date Exam was Performed: 07/26/19 Time Exam was Performed: 08:24 - Problem List Review Problem List Initiated/Reviewed/Updated: Yes - My Orders Last 24 Hours: Active Orders 24 hr Category Date Time Status Patient Status [ADT] Routine ADT 07/25/19 15:21 Active Communication Order [RC] ASDIRECTED Care 07/25/19 13:22 Active Notify Provider [RC] ASDIRECTED Care 07/25/19 13:22 Active Ready for Discharge [RC] PER UNIT ROUTINE Care 07/26/19 08:22 Ordered Regular Diet [DIET] Diet 07/25/19 Lunch Active Aspirin [Ecotrin] Med 07/26/19 09:00 Active 325 mg PO BID Cholecalciferol (Vitamin D3) [Vitamin D3] Med 07/26/19 09:00 Active 50 mcg PO DAILY Cyanocobalamin (Vitamin B12) [Vitamin B12] Med 07/26/19 09:00 Active 1,000 mcg PO DAILY Docusate Sodium [Colace] Med 07/25/19 21:00 Active 100 mg PO BID Famotidine [Pepcid] Med 07/25/19 21:00 Active 20 mg PO Q12H Ketorolac [Toradol] Med 07/25/19 15:00 Active 15 mg IVPUSH Q6H PRN Rosuvastatin [Crestor] Med 07/25/19 21:00 Active 5 mg PO BEDTIME ceFAZolin [Ancef] 2 gm Med 07/25/19 19:00 Active Premix Bag 1 bag IV Q8H Medication Orders Aspirin (Ecotrin) 325 mg PO BID [facility] Bisacodyl (Dulcolax) 5 mg PO DAILY PRN PRN Reason: Constipation Cholecalciferol (Vitamin D3) 50 mcg PO DAILY [facility] Cyanocobalamin (Vitamin B12) 1,000 mcg PO DAILY [facility] Docusate Sodium (Colace) 100 mg PO BID [facility] Last Admin: 07/25/19 21:29 Dose: 100 mg Famotidine (Pepcid) 20 mg PO Q12H [facility] Last Admin: 07/25/19 21:29 Dose: 20 mg Cefazolin Sodium/Dextrose 2 gm (/ Premix) 50 mls @ 100 mls/hr IV Q8H [facility] Stop: 07/26/19 11:29 Last Admin: 07/26/19 03:06 Dose: 100 mls/hr Infusion: 07/25/19 18:43 Dose: 100 mls/hr Admin: 07/25/19 18:13 Dose: 100 mls/hr Ketorolac Tromethamine (Toradol) 15 mg IVPUSH Q6H PRN PRN Reason: Pain Last Admin: 07/25/19 21:32 Dose: 15 mg Magnesium Hydroxide (Milk Of Magnesia) 30 ml PO BID PRN PRN Reason: Constipation Morphine Sulfate (Morphine) 2 mg IVPUSH Q2H PRN PRN Reason: Breakthrough Pain Naloxone HCl (Narcan) 0.1 mg IVPUSH Q5M PRN PRN Reason: Oversedation Ondansetron HCl (Zofran) 4 mg IVPUSH Q6H PRN PRN Reason: Nausea/Vomiting Last Admin: 07/25/19 18:56 Dose: 4 mg Oxycodone/Acetaminophen (Percocet 325-5 Mg) 1 - 2 tab PO Q4H PRN PRN Reason: Pain Last Admin: 07/26/19 03:44 Dose: 2 tab Admin: 07/25/19 18:18 Dose: 2 tab Rosuvastatin Calcium (Crestor) 5 mg PO BEDTIME [facility] Last Admin: 07/25/19 21:29 Dose: 5 mg Senna (Senna) 8.6 mg PO BID PRN PRN Reason: Constipation - Assessment Assessment (Free Text/Narrative):: POD#1 - left JOSE DANIEL - Plan Plan (Free Text/Narrative):: 1. 325mg ASA PO BID, frequent mobility, TEDs for VTE prophylaxis. 2. Hgb 11.5. 3. Discharge to home today. 4. Outpatient therapy. The pt's case was discussed with Dr. Infante.
[2019-07-26] MEDS: Ondansetron 4 MG/2 ML SDV IVPUSH PRN (08:39)
[2019-07-26] MEDS ORDERED: Aspirin 325 MG Tab.EC PO SCH (09:00)
[2019-07-26] MEDS ORDERED: Cyanocobalamin (Vitamin B12) 1,000 MCG Tab PO SCH (09:00)
[2019-07-26] MEDS ORDERED: Cholecalciferol (Vitamin D3) 25 MCG Tab PO SCH (09:00)
--- NOTE | 2019-07-26 09:25 | PCM48HPAN ---
Post Anesthesia Note - EVALUATION WITHIN 48HRS OF ANESTHETIC Vital Signs in Normal Range: Yes Patient Participated in Evaluation: Yes Respiratory Function Stable: Yes Airway Patent: Yes Cardiovascular Function Stable: Yes Hydration Status Stable: Yes Pain Control Satisfactory: Yes Nausea and Vomiting Control Satisfactory: Yes Mental Status Recovered: Yes Vital Signs: Last Vital Signs Temp 36.7 C 07/26/19 03:06 Pulse 70 07/26/19 03:06 Resp 18 07/26/19 03:06 BP 131/88 07/26/19 03:06 Pulse Ox 99 07/26/19 03:06
[2019-07-26] MEDS: Ketorolac 15 MG/ML SDV IVPUSH PRN (10:06)
[2019-07-26] MEDS: Docusate Sodium 100 MG Cap PO SCH (10:08)
[2019-07-26] MEDS: Famotidine 20 MG Tab PO SCH (10:08)
--- NOTE | 2019-07-28 11:33 | PCM.OPNOTE ---
- General Post-Op/Procedure Note Date of Surgery/Procedure: 07/25/19 Operative Procedure(s): left total hip arthroplasty Pre Op Diagnosis: left hip osteoarhtrosis Post-Op Diagnosis: Same Anesthesia Technique: Local, MAC, Spinal Primary Surgeon: Micky Infante Anesthesia Provider: Claudia Ontiveros Patent Prosecution Attorney: Milady Leal Patent Prosecution Attorney: Dee Moore EBPramod in mLs: 350 Complications: None Condition: Good Free Text/Narrative:: 7 stem 54 cup 36-5
--- NOTE | 2019-07-28 13:01 | OR ---
DATE OF OPERATION: 07/25/2019 SURGEON: Micky Infante MD OPERATION PERFORMED: Left total hip arthroplasty. PREOPERATIVE DIAGNOSIS: Left hip osteoarthrosis. POSTOPERATIVE DIAGNOSIS: Left hip osteoarthrosis. ANESTHESIA: Local MAC with spinal. ANESTHESIA PROVIDER: Claudia Ontiveros CRNA ASSISSTANTS: Milady Leal PA-C; and Dee Moore LPN. ESTIMATED BLOOD LOSS: 350 mL. COMPLICATIONS: None. CONDITION: Stable. IMPLANTS: 1. Shiloh size 7 Accolade II stem. 2. Shiloh size 54 mm solid Tritanium II acetabular cup. 3. Jim size 36 -5 Biolox femoral head. DESCRIPTION OF PROCEDURE: The patient was identified in the preoperative holding area. Proper site was marked and identified by the surgeon. The patient was taken back to the operating theater, where after adequate anesthesia, the patient was placed in a right lateral decubitus position. Axillary roll was placed. Pegs were then placed and well padded. The patient's gluteal fold was parallel to the floor. Left hip was then sterilely prepped and draped in the usual sterile fashion. OR- wide time-out was performed. The patient received 2 g IV Ancef. Standard posterior incision was made centered over the greater trochanter. This was taken down to the IT band and gluteal fascia, which was then incised along the incisional length. Charnley retractor was then placed. Short external rotators were identified and takedown of short external rotators as well as capsulotomy were performed from the piriformis down to the lesser trochanter. Hip was then dislocated. Neck cut was completed and found to be adequate. Attention was turned to the acetabulum. Anterior and posterior acetabular retractors were placed. Circumferential removal of the labrum as well as the pulvinar was done. Starting with a 48 reamer, I was able to ream up to a 54, which was found to have a good bony bleeding bed. A 54 mm Tritanium II acetabular cup was then impacted into proper position. A 36 mm flat liner was then impacted in position and it was tested with a Elvia. Attention was turned to the femur. Box chisel was used out laterally. Starter awl was placed down the canal. Starting with 0 broach, I was able to broach up to a size 7, which was found to be rotationally and vertically stable. Trial implants with 36 +0 were then trialed. It was found to be a hair long, so we did a -5. It had adequate hindu of leg lengths and was stable throughout range of motion. The hip was then dislocated. Trial implants were then removed. Size 7 Accolade II stem was impacted in place along with a 36 -5 Biolox femoral head. The hip was then relocated. A #5 Ethibond suture was used for closure of the short external rotators and capsule. 1 L dilute Betadine solution was irrigated through the hip along with 3 L of pulse lavage irrigation with Ancef. Topical tranexamic acid and vancomycin powder were placed, and a periarticular injection was completed. A #2 barbed suture was used for closure of the IT band and gluteal fascia. 2-0 Vicryl was used subcutaneously and Prineo was used for the skin. The patient tolerated the procedure well and sent to PACU in stable condition. MMODAL /[id number]
== END 2019-07-26 11:55 | disposition home or self-care (01) | DRG 470 ==
LOC: JD.MS 07-25 10:12
PROVIDERS: ADMIT Orthopaedic Surgery; ATTEND Orthopaedic Surgery
PROC: 0SRB0JZ Replacement of Left Hip Joint with Synthetic Substitute, Open Approach (ICD-10-PCS; principal; 2019-07-25)
DX: M16.12 Unilateral primary osteoarthritis, left hip (principal); E78.5 Hyperlipidemia, unspecified; M85.862 Other specified disorders of bone density and structure, left lower leg; M85.861 Other specified disorders of bone density and structure, right lower leg; E78.00 Pure hypercholesterolemia, unspecified; Z86.010 Personal history of colon polyps; Z88.1 Allergy status to other antibiotic agents; Z79.899 Other long term (current) drug therapy; Z98.49 Cataract extraction status, unspecified eye; Z91.038 Other insect allergy status
CPT/HCPCS: 01214; 36415; 73501-26-LT; 73501-LT; 80053; 85027; 86850; 86900; 86901; 87641; 97110-GP; 97116-GP; 97161-GP; 97165-GO; 97535-GO; A9270-GY; C1776; J0171; J0690; J0697; J1885; J2001; J2250; J2270; J2405; J2704; J3010; J3370; J3490; J7120; U0002